=== PATIENT | female | born 1930 | race Hispanic/Latino ===

== ENCOUNTER 2020-03-27 14:37 | Inpatient (IN) | payer MEDICARE ==
[2020-03-27 16:19] LABS: Hematocrit 22.5 % (30.3-42.9); Hemoglobin 7.7 gm/dl (10.1-14.3); Mean Corpuscular HGB Conc 34 % (30-34); Mean Corpuscular Volume 110 fl (79-97); Platelet Count 200 K/mm3 (140-440); Red Blood Count 2.04 M/mm3 (3.65-5.03); Red Cell Distribution Width 17.7 % (13.2-15.2)
[2020-03-27 16:35] LABS: Albumin 3.6 g/dL (3.9-5); Calcium 7.5 mg/dL (8.4-10.2)
[2020-03-27] MEDS ORDERED: SODIUM CHLORIDE 0.45% 1000 ML 1,000 ML IV SCH (17:00)
[2020-03-27 17:04] LABS: Bilirubin,Urine NEG (Negative); Blood,Urine SM (Negative); Color,Urine Yellow (Yellow); Mucus,Urine FEW /HPF; Protein,Urine <15 mg/dL mg/dL (Negative); RBC,Urine < 1.0 /HPF (0.0-6.0); Urobilinogen,Urine < 2.0 mg/dL (<2.0)
[2020-03-27 17:26] LABS: Basophils % (Manual) 0 % (0.0-1.8); Eosinophils % (Manual) 0 % (0.0-4.3); RBC Morphology Normal; Total Cells Counted 100
--- NOTE | 2020-03-27 18:06 | Emergency Department Report ---
ED Fall HPI - General Chief Complaint: Fall Stated Complaint: FAILURE TO THRIVE Time Seen by Provider: 03/27/20 15:52 Source: EMS Mode of arrival: Ambulatory - History of Present Illness Initial Comments: 89-year-old female with history of anxiety, dementia, hypertension, CHF, d iabetes, chronic kidney disease, presents to ED via ambulance complaining of fall. Apparently patient calls EMS frequently due to fall. Patient apparently lives alone and house was in disarray. She also presents to the ED with compacted feces in underwear and on skin. Patient constantly asking for water and something to eat. She complains of headache. Medical History Previous Medical History?: Yes Hx Hypertension: Yes Hx Congestive Heart Failure: Yes Hx Diabetes: Yes Hx Renal Disease: Yes (CKD) Hx Seizures: Yes Hx COPD: Yes Additional medical history: high cholesterol - Surgical History Past Surgical History?: Yes Additional Surgical History: hysterectomy PT's previous records are under the name an [facility] record below. Last visit was 03/19/20 for headache Patient Name: MARIZOL HENSLEY Date of : 1930 Per medical record review patient's creatinine ranges from 1.5-1.8 since 2016. last visit creatinine 2.0 - Related Data Allergies Allergy/AdvReac Type Severity Reaction Status Date / Time codeine Allergy Unknown Verified 03/27/20 16:55 ED Review of Systems ROS: Stated complaint: FAILURE TO THRIVE Other details as noted in HPI Comment: All other systems reviewed and negative ED Past Medical Hx - Past Medical History Hx Hypertension: Yes Hx Diabetes: Yes - Social History Smoking Status: Former Smoker Substance Use Type: None ED Physical Exam - General Limitations: Physical Limitation - Other Other exam information: General: No acute distress Head: Atraumatic Eyes: normal appearance ENT: Moist mucous membranes Neck: Normal appearance, no midline tenderness Chest: Clear to auscultation bilaterally CV: Regular rate and rhythm Abdomen: Soft, normal bowel sounds, nontender, nondistended, no rebound or guarding Rectal: Guaiac positive brown stool without melena Back: Normal inspection Extremity: Normal inspection, full range of motion Neuro: Alert O x 2, no facial asymmetry, speech clear, no gross motor sensory deficit Psych: Appropriate behavior Skin: multiples superfical skin abrasions and bruises to extremities from recent falls ED Course Vital Signs 03/27/20 03/27/20 03/27/20 14:58 15:00 15:04 Temperature 98.3 F Pulse Rate 74 89 85 Respiratory 16 20 15 Rate Blood Pressure 112/39 Blood Pressure 112/39 [Right] O2 Sat by Pulse 98 Oximetry 03/27/20 03/27/20 15:32 18:57 Temperature Pulse Rate 78 Respiratory 15 16 Rate Blood Pressure Blood Pressure 142/61 [Right] O2 Sat by Pulse 100 Oximetry - Reevaluation(s) Reevaluation #1: 03/27/20 19:[address] scan results because they were not sent for read. Still awaiting ct c spine results ED Medical Decision Making - Lab Data Result diagrams: 03/27/20 16:05 03/27/20 16:05 Lab Results 03/27/20 03/27/20 03/27/20 Range/Units 16:05 16:05 16:05 WBC 7.1 (4.5-11.0) K/mm3 RBC 2.04 L (3.65-5.03) M/mm3 Hgb 7.7 L (10.1-14.3) gm/dl Hct 22.5 L (30.3-42.9) % MCV 110 H (79-97) fl MCH 38 H (28-32) pg MCHC 34 (30-34) % RDW 17.7 H (13.2-15.2) % Plt Count 200 (140-440) K/mm3 Add Manual Diff Complete Total Counted 100 Seg Neutrophils % Culinary Instructor Seg Neuts % (Manual) 91.0 H (40.0-70.0) % Band Neutrophils % 0 % Lymphocytes % (Manual) 6.0 L (13.4-35.0) % Reactive Lymphs % (Man) 0 % Monocytes % (Manual) 3.0 (0.0-7.3) % Eosinophils % (Manual) 0 (0.0-4.3) % Basophils % (Manual) 0 (0.0-1.8) % Metamyelocytes % 0 % Myelocytes % 0 % Promyelocytes % 0 % Blast Cells % 0 % Nucleated RBC % Not Reportable Seg Neutrophils # Man 6.5 (1.8-7.7) K/mm3 Band Neutrophils # 0.0 K/mm3 Lymphocytes # (Manual) 0.4 L (1.2-5.4) K/mm3 Abs React Lymphs (Man) 0.0 K/mm3 Monocytes # (Manual) 0.2 (0.0-0.8) K/mm3 Eosinophils # (Manual) 0.0 (0.0-0.4) K/mm3 Basophils # (Manual) 0.0 (0.0-0.1) K/mm3 Metamyelocytes # 0.0 K/mm3 Myelocytes # 0.0 K/mm3 Promyelocytes # 0.0 K/mm3 Blast Cells # 0.0 K/mm3 WBC Morphology Not Reportable Hypersegmented Neuts Not Reportable Hyposegmented Neuts Not Reportable Hypogranular Neuts Not Reportable Smudge Cells Not Reportable Toxic Granulation Not Reportable Toxic Vacuolation Not Reportable Dohle Bodies Not Reportable Pelger-Huet Anomaly Not Reportable Palak Rods Not Reportable Platelet Estimate Not Reportable Clumped Platelets Not Reportable Plt Clumps, EDTA Not Reportable Large Platelets Not Reportable Giant Platelets Not Reportable Platelet Satelliting Not Reportable Plt Morphology Comment Not Reportable RBC Morphology Normal Dimorphic RBCs Not Reportable Polychromasia Not Reportable Hypochromasia Not Reportable Poikilocytosis Not Reportable Anisocytosis Not Reportable Microcytosis Not Reportable Macrocytosis Not Reportable Spherocytes Not Reportable Pappenheimer Bodies Not Reportable Sickle Cells Not Reportable Target Cells Not Reportable Tear Drop Cells Not Reportable Ovalocytes Not Reportable Helmet Cells Not Reportable Christian-Caraway Bodies Not Reportable [place] Rings Not Reportable Bianka Cells Not Reportable Bite Cells Not Reportable Crenated Cell Not Reportable Elliptocytes Not Reportable Acanthocytes (Spur) Not Reportable Rouleaux Not Reportable Hemoglobin C Crystals Not Reportable Schistocytes Not Reportable Malaria parasites Not Reportable Shane Bodies Not Reportable Hem Pathologist Commnt No Sodium 142 (137-145) mmol/L Potassium 4.3 (3.6-5.0) mmol/L Chloride 106.8 (98-107) mmol/L Carbon Dioxide 17 L (22-30) mmol/L Anion Gap 23 mmol/L BUN 62 H (7-17) mg/dL Creatinine 2.7 H (0.7-1.2) mg/dL Estimated GFR 17 ml/min BUN/Creatinine Ratio 23 % Glucose 199 H (65-100) mg/dL Hemoglobin A1c 5.7 (4-6) % Calcium 7.5 L (8.4-10.2) mg/dL Magnesium (1.7-2.3) mg/dL Total Bilirubin 0.20 (0.1-1.2) mg/dL AST 15 (5-40) units/L ALT 14 (7-56) units/L Alkaline Phosphatase 56 (35-129) units/L Total Creatine Kinase 158 H (30-135) units/L Total Protein 6.2 L (6.3-8.2) g/dL Albumin 3.6 L (3.9-5) g/dL Albumin/Globulin Ratio 1.4 % Urine Color (Yellow) Urine Turbidity (Clear) Urine pH (5.0-7.0) Ur Specific Collins (1.003-1.030) Urine Protein (Negative) mg/dL Urine Glucose (UA) (Negative) mg/dL Urine Ketones (Negative) mg/dL Urine Blood (Negative) Urine Nitrite (Negative) Urine Bilirubin (Negative) Urine Urobilinogen (<2.0) mg/dL Ur Leukocyte Esterase (Negative) Urine WBC (Auto) (0.0-6.0) /HPF Urine RBC (Auto) (0.0-6.0) /HPF Urine Mucus /HPF 03/27/20 03/27/20 Range/Units 16:05 16:47 WBC (4.5-11.0) K/mm3 RBC (3.65-5.03) M/mm3 Hgb (10.1-14.3) gm/dl Hct (30.3-42.9) % MCV (79-97) fl MCH (28-32) pg MCHC (30-34) % RDW (13.2-15.2) % Plt Count (140-440) K/mm3 Add Manual Diff Total Counted Seg Neutrophils % Seg Neuts % (Manual) (40.0-70.0) % Band Neutrophils % % Lymphocytes % (Manual) (13.4-35.0) % Reactive Lymphs % (Man) % Monocytes % (Manual) (0.0-7.3) % Eosinophils % (Manual) (0.0-4.3) % Basophils % (Manual) (0.0-1.8) % Metamyelocytes % % Myelocytes % % Promyelocytes % % Blast Cells % % Nucleated RBC % Seg Neutrophils # Man (1.8-7.7) K/mm3 Band Neutrophils # K/mm3 Lymphocytes # (Manual) (1.2-5.4) K/mm3 Abs React Lymphs (Man) K/mm3 Monocytes # (Manual) (0.0-0.8) K/mm3 Eosinophils # (Manual) (0.0-0.4) K/mm3 Basophils # (Manual) (0.0-0.1) K/mm3 Metamyelocytes # K/mm3 Myelocytes # K/mm3 Promyelocytes # K/mm3 Blast Cells # K/mm3 WBC Morphology Hypersegmented Neuts Hyposegmented Neuts Hypogranular Neuts Smudge Cells Toxic Granulation Toxic Vacuolation Dohle Bodies Pelger-Huet Anomaly Palak Rods Platelet Estimate Clumped Platelets Plt Clumps, EDTA Large Platelets Giant Platelets Platelet Satelliting Plt Morphology Comment RBC Morphology Dimorphic RBCs Polychromasia Hypochromasia Poikilocytosis Anisocytosis Microcytosis Macrocytosis Spherocytes Pappenheimer Bodies Sickle Cells Target Cells Tear Drop Cells Ovalocytes Helmet Cells Christian-Caraway Bodies [place] Rings Bianka Cells Bite Cells Crenated Cell Elliptocytes Acanthocytes (Spur) Rouleaux Hemoglobin C Crystals Schistocytes Malaria parasites Shane Bodies Hem Pathologist Commnt Sodium (137-145) mmol/L Potassium (3.6-5.0) mmol/L Chloride (98-107) mmol/L Carbon Dioxide (22-30) mmol/L Anion Gap mmol/L BUN (7-17) mg/dL Creatinine (0.7-1.2) mg/dL Estimated GFR ml/min BUN/Creatinine Ratio % Glucose (65-100) mg/dL Hemoglobin A1c (4-6) % Calcium (8.4-10.2) mg/dL Magnesium 2.00 (1.7-2.3) mg/dL Total Bilirubin (0.1-1.2) mg/dL AST (5-40) units/L ALT (7-56) units/L Alkaline Phosphatase (35-129) units/L Total Creatine Kinase (30-135) units/L Total Protein (6.3-8.2) g/dL Albumin (3.9-5) g/dL Albumin/Globulin Ratio % Urine Color Yellow (Yellow) Urine Turbidity Slightly-cloudy (Clear) Urine pH 5.0 (5.0-7.0) Ur Specific Collins 1.015 (1.003-1.030) Urine Protein <15 mg/dl (Negative) mg/dL Urine Glucose (UA) Neg (Negative) mg/dL Urine Ketones Neg (Negative) mg/dL Urine Blood Sm (Negative) Urine Nitrite Neg (Negative) Urine Bilirubin Neg (Negative) Urine Urobilinogen < 2.0 (<2.0) mg/dL Ur Leukocyte Esterase Neg (Negative) Urine WBC (Auto) 1.0 (0.0-6.0) /HPF Urine RBC (Auto) < 1.0 (0.0-6.0) /HPF Urine Mucus Few /HPF - Radiology Data Radiology results: report reviewed ct head: naf - Medical Decision Making pts main complaint is wanting to eat and drink inc bun/cr ratio suggesting dehydration. ivf ordered + anemia noted hgb 8.8 on 03/19 now 7.7., guaic + brown stool without gross blood or melena Dr Gilbert requests pt to be admitted by next hospitalist DR Castillo Critical Care Time: No Critical care attestation.: If time is entered above; I have spent that time in minutes in the direct care of this critically ill patient, excluding procedure time. ED Disposition Clinical Impression: Anemia, Renal insufficiency, Dehydration, Frequent falls, Dementia, Guaiac + stool Disposition: OP ADMIT IP TO THIS HOSP Is pt being admited?: Yes Condition: Stable Time of Disposition: 19:45 (to be admitted by Dr Castillo)
--- NOTE | 2020-03-27 18:31 | Cat Scan Report ---
NONENHANCED CT SCAN OF THE HEAD: INDICATION / CLINICAL INFORMATION: 89 years Female; fell down; dementia TECHNIQUE: Routine CT head without contrast. All CT scans at this location are performed using CT dos e reduction for ALARA by means of automated exposure control. COMPARISON: None. FINDINGS: BRAIN / INTRACRANIAL CONTENTS: No intracranial sequela from the trauma.; No scalp hematoma; no air-fl uid level in the visualized portions of the paranasal sinuses. No acute hemorrhage, mass effect, midline shift, hydrocephalus, or acute, large territorial infarct. No chronic infarct or focal atrophy. Cerebellar hemispheres; chronic ischemic lesions chronic small vessel disease in the right heath radiata CRANIOCERVICAL JUNCTION: No significant abnormality. ORBITS: No significant abnormality of visualized orbits. SINUSES / MASTOIDS: No significant abnormality of the visualized paranasal sinuses or mastoid air liam ls. ADDITIONAL FINDINGS: None. IMPRESSION: No intracranial sequela from the trauma Signer Name: Kody Johnson MD Signed: 03/27/2020 6:26 PM Workstation Name: [id number]
--- NOTE | 2020-03-27 19:42 | Cat Scan Report ---
Exam: CT cervical spine History: fall, dementia; Technique: Contiguous thin cut axial images obtained through the cervical spine. Sagittal and heath l reconstructions performed by the technologist. All CT scans at this location are performed using CT dose reduction for ALARA by means of automated exposure control. Findings: No priors. There is no evidence of fracture or traumatic subluxation. Prevertebral fat stripe normal; no fractur e in the transverse images Midline bulging disc at C2-C3, C3-C4, C4-C5 and C5-C6 disc levels. Neuroforamina are normal. At C6-C7 level, loss of disc height; bony spur without lateralization No significant degenerative change seen in the uncinate or facet joints. No significant canal stenosi s or osseous foraminal narrowing. Surrounding soft tissues are grossly normal. Impression: No signs of acute bony trauma to the cervical spine. Signer Name: Kody Johnson MD Signed: 03/27/2020 7:37 PM Workstation Name: [id number]
[2020-03-27] MEDS ORDERED: DEXTROSE 50% IN WATER (25GM) 50 ML SYRINGE IV PRN (22:54)
[2020-03-27] MEDS ORDERED: SODIUM CHLORIDE 0.9% 1000 ML 1,000 ML IV SCH (23:00)
[2020-03-28] MEDS ORDERED: TEMAZEPAM 15 MG CAP PO ONE (00:15)
[2020-03-28 01:23] LABS: Hematocrit 27.2 % (30.3-42.9); Hemoglobin 8.3 gm/dl (10.1-14.3)
[2020-03-28 05:40] LABS: Hematocrit 25.5 % (30.3-42.9); Hemoglobin 8.1 gm/dl (10.1-14.3)
[2020-03-28] MEDS: INSULIN REGULAR, HUMAN 100 UNITS/1 ML SUB-Q SCH ×5 (08:48→22:28)
--- NOTE | 2020-03-28 09:39 | Consultation ---
History of Present Illness - Reason for Consult acute renal failure, chronic renal failure - History of Present Illness patient is a 89-year-old female with history of anxiety, dementia, hypertension, CHF, diabetes, chronic kidney disease, was admitted last night after a fall, CT head and neck were negative for acute injury, she was found to have abnormal kidney function, metabolic acidosis and anemia and renal consult was requested for the management of renal failure. Past History Past Medical History: No medical history (dementia, CHF) Medications and Allergies Allergies Allergy/AdvReac Type Severity Reaction Status Date / Time codeine Allergy Unknown Verified 03/27/20 16:55 Home Medications Medication Instructions Recorded Confirmed Last Taken Type Unobtainable 03/28/20 03/28/20 Unknown History Active Meds: Active Medications Acetaminophen (Tylenol) 650 mg PO Q4H PRN PRN Reason: Pain, Mild (1-3) Last Admin: 03/28/20 00:00 Dose: 650 mg Documented by: Dextrose (D50w (25gm) Syringe) 0 ml IV Q30MIN PRN; Protocol PRN Reason: Hypoglycemia Sodium Bicarbonate 75 meq/ (Sodium Chloride) 1,075 mls @ 75 mls/hr IV DIRECT LUIS ALBERTO Insulin Human Regular (Humulin R) 0 units SUB-Q AC LUIS ALBERTO; Protocol Insulin Human Regular (Humulin R) 0 units SUB-Q QHS LUIS ALBERTO; Protocol Review of Systems All systems: negative (weakness) Exam - Vital Signs Vital signs: Vital Signs Pulse Resp 74 16 03/27/20 14:58 03/27/20 14:58 - General Appearance General appearance: well-developed, cachectic EENT: ATNC, PERRL, mucous membranes dry Neck: Present: neck supple Respiratory: Clear to Ascultation Heart: regular, S1S2 Gastrointestinal: Present: normoactive bowel sounds. Absent: tenderness, distended Integumentary: no rash Neurologic: other (follows simple commands) Musculoskeletal: Present: other (no edema in BLE) Psychiatric: other (answers simple questions) Results - Lab Results 03/28/20 05:06 03/27/20 16:05 Most recent lab results Calcium 7.5 mg/dL (8.4-10.2) L 03/27/20 16:05 Magnesium 2.00 mg/dL (1.7-2.3) 03/27/20 16:05 Assessment and Plan renal failure, possible AL on CKD, baseline Cr is unknown Anemia Fall Metabolic acidosis will switch IVF to 1/2 NS with sodium bicarb 75 meq @ 75 cc/h urine lytes, eos and protein ordered renal US ordered CK ordered renally dose meds Strict I&O Daily weight Srini Ochoa MD [phone]
[2020-03-28] MEDS ORDERED: SODIUM CHLORIDE 0.45% 1000 ML 1,000 ML with SODIUM BICARBONATE 75 MEQ IV SCH (10:00)
--- NOTE | 2020-03-28 16:56 | Gastroenterology Consultation ---
History of Present Illness - Reason for Consult Consult date: 03/28/20 Anemia/Heme (+) Stool Requesting physician: AMI OQUENDO - History of Present Illness The patient is demented, and most of hx is per the chart (including old records under "[facility]") as well as nursing/MD notes. The patient was brought to the ER after falls at home (last occurence was 02/2020). She apparently lives at home alone but has a caregiver. On presentation to the ER, trauma series was negative for fracture, but the patient was disheveled, and very thin/in poor condition. Past History Past Medical History: heart failure, hypertension, other (Dementia) Past Surgical History: hysterectomy Social history: Lives alone. denies: smoking, alcohol abuse Family history: no significant family history Medications and Allergies Allergies Allergy/AdvReac Type Severity Reaction Status Date / Time codeine Allergy Unknown Verified 03/27/20 16:55 Home Medications Medication Instructions Recorded Confirmed Last Taken Type Unobtainable 03/28/20 03/28/20 Unknown History Active Meds: Active Medications Acetaminophen (Tylenol) 650 mg PO Q4H PRN PRN Reason: Pain, Mild (1-3) Last Admin: 03/28/20 00:00 Dose: 650 mg Documented by: Dextrose (D50w (25gm) Syringe) 0 ml IV Q30MIN PRN; Protocol PRN Reason: Hypoglycemia Sodium Bicarbonate 75 meq/ (Sodium Chloride) 1,075 mls @ 75 mls/hr IV DIRECT LUIS ALBERTO Insulin Human Regular (Humulin R) 0 units SUB-Q AC LUIS ALBERTO; Protocol Last Admin: 03/28/20 12:00 Dose: 1 units Documented by: Insulin Human Regular (Humulin R) 0 units SUB-Q QHS LUIS ALBERTO; Protocol Multivitamins/Minerals (Theragran-M Tab) 1 each PO QDAY LUIS ALBERTO I HAVE REVIEWED/RECONCILED MEDICATIONS Review of Systems - Review of Systems ROS unobtainable: due to mental status Exam - Constitutional Vital Signs: Temp Pulse Resp BP Pulse Ox 97.0 F L 91 H 22 166/110 96 03/28/20 11:45 03/28/20 11:45 03/28/20 11:45 03/28/20 11:45 03/28/20 11:45 General appearance: cachectic, disheveled - EENT Eyes: PERRL, EOM intact ENT: hearing intact, no thrush - Neck Neck: supple, normal ROM - Respiratory Respiratory effort: normal Respiratory: bilateral: CTA - Cardiovascular Rhythm: regular Heart Sounds: Present: S1 & S2 Extremities: no ischemia, No edema - Gastrointestinal General gastrointestinal: Present: soft, non-tender, non-distended - Integumentary Integumentary: Present: warm (Numerous scratches present), dry - Neurologic Neurological: disoriented - Labs CBC & Chem 7: 03/28/20 05:06 03/27/20 16:05 Lab Results: Laboratory Results - last 24 hr 03/27/20 03/27/20 03/27/20 16:05 16:05 16:47 Hgb Hct Add Manual Diff Complete Total Counted 100 Seg Neuts % (Manual) 91.0 H Band Neutrophils % 0 Lymphocytes % (Manual) 6.0 L Reactive Lymphs % (Man) 0 Monocytes % (Manual) 3.0 Eosinophils % (Manual) 0 Basophils % (Manual) 0 Metamyelocytes % 0 Myelocytes % 0 Promyelocytes % 0 Blast Cells % 0 Nucleated RBC % Not Reportable Seg Neutrophils # Man 6.5 Band Neutrophils # 0.0 Lymphocytes # (Manual) 0.4 L Abs React Lymphs (Man) 0.0 Monocytes # (Manual) 0.2 Eosinophils # (Manual) 0.0 Basophils # (Manual) 0.0 Metamyelocytes # 0.0 Myelocytes # 0.0 Promyelocytes # 0.0 Blast Cells # 0.0 WBC Morphology Not Reportable Hypersegmented Neuts Not Reportable Hyposegmented Neuts Not Reportable Hypogranular Neuts Not Reportable Smudge Cells Not Reportable Toxic Granulation Not Reportable Toxic Vacuolation Not Reportable Dohle Bodies Not Reportable Pelger-Huet Anomaly Not Reportable [place] Rods Not Reportable Platelet Estimate Not Reportable Clumped Platelets Not Reportable Plt Clumps, EDTA Not Reportable Large Platelets Not Reportable Giant Platelets Not Reportable Platelet Satelliting Not Reportable Plt Morphology Comment Not Reportable RBC Morphology Normal Dimorphic RBCs Not Reportable Polychromasia Not Reportable Hypochromasia Not Reportable Poikilocytosis Not Reportable Anisocytosis Not Reportable Microcytosis Not Reportable Macrocytosis Not Reportable Spherocytes Not Reportable Pappenheimer Bodies Not Reportable Sickle Cells Not Reportable Target Cells Not Reportable Tear Drop Cells Not Reportable Ovalocytes Not Reportable Helmet Cells Not Reportable [place] Bodies Not Reportable [place] Rings Not Reportable [place] Cells Not Reportable Bite Cells Not Reportable Crenated Cell Not Reportable Elliptocytes Not Reportable Acanthocytes (Spur) Not Reportable Rouleaux Not Reportable Hemoglobin C Crystals Not Reportable Schistocytes Not Reportable Malaria parasites Not Reportable Shane Bodies Not Reportable Hem Pathologist Commnt No POC Glucose Total Creatine Kinase 158 H Urine Color Yellow Urine Turbidity Slightly-cloudy Urine pH 5.0 Ur Specific [place] 1.015 Urine Protein <15 mg/dl Urine Glucose (UA) Neg Urine Ketones Neg Urine Blood Sm Urine Nitrite Neg Urine Bilirubin Neg Urine Urobilinogen < 2.0 Ur Leukocyte Esterase Neg Urine WBC (Auto) 1.0 Urine RBC (Auto) < 1.0 Urine Mucus Few 03/27/20 03/28/20 03/28/20 23:22 00:43 05:06 Hgb 8.3 L 8.1 L Hct 27.2 L 25.5 L Add Manual Diff Total Counted Seg Neuts % (Manual) Band Neutrophils % Lymphocytes % (Manual) Reactive Lymphs % (Man) Monocytes % (Manual) Eosinophils % (Manual) Basophils % (Manual) Metamyelocytes % Myelocytes % Promyelocytes % Blast Cells % Nucleated RBC % Seg Neutrophils # Man Band Neutrophils # Lymphocytes # (Manual) Abs React Lymphs (Man) Monocytes # (Manual) Eosinophils # (Manual) Basophils # (Manual) Metamyelocytes # Myelocytes # Promyelocytes # Blast Cells # WBC Morphology Hypersegmented Neuts Hyposegmented Neuts Hypogranular Neuts Smudge Cells Toxic Granulation Toxic Vacuolation Dohle Bodies Pelger-Huet Anomaly [place] Rods Platelet Estimate Clumped Platelets Plt Clumps, EDTA Large Platelets Giant Platelets Platelet Satelliting Plt Morphology Comment RBC Morphology Dimorphic RBCs Polychromasia Hypochromasia Poikilocytosis Anisocytosis Microcytosis Macrocytosis Spherocytes Pappenheimer Bodies Sickle Cells Target Cells Tear Drop Cells Ovalocytes Helmet Cells [place] Bodies [place] Rings Bianka Cells Bite Cells Crenated Cell Elliptocytes Acanthocytes (Spur) Rouleaux Hemoglobin C Crystals Schistocytes Malaria parasites Shane Bodies Hem Pathologist Commnt POC Glucose 209 H Total Creatine Kinase Urine Color Urine Turbidity Urine pH Ur Specific [place] Urine Protein Urine Glucose (UA) Urine Ketones Urine Blood Urine Nitrite Urine Bilirubin Urine Urobilinogen Ur Leukocyte Esterase Urine WBC (Auto) Urine RBC (Auto) Urine Mucus 03/28/20 03/28/20 03/28/20 07:47 11:18 12:01 Hgb Hct Add Manual Diff Total Counted Seg Neuts % (Manual) Band Neutrophils % Lymphocytes % (Manual) Reactive Lymphs % (Man) Monocytes % (Manual) Eosinophils % (Manual) Basophils % (Manual) Metamyelocytes % Myelocytes % Promyelocytes % Blast Cells % Nucleated RBC % Seg Neutrophils # Man Band Neutrophils # Lymphocytes # (Manual) Abs React Lymphs (Man) Monocytes # (Manual) Eosinophils # (Manual) Basophils # (Manual) Metamyelocytes # Myelocytes # Promyelocytes # Blast Cells # WBC Morphology Hypersegmented Neuts Hyposegmented Neuts Hypogranular Neuts Smudge Cells Toxic Granulation Toxic Vacuolation Dohle Bodies Pelger-Huet Anomaly [place] Rod[place] Platelet Estimate Clumped Platelets Plt Clumps, EDTA Large Platelets Giant Platelets Platelet Satelliting Plt Morphology Comment RBC Morphology Dimorphic RBCs Polychromasia Hypochromasia Poikilocytosis Anisocytosis Microcytosis Macrocytosis Spherocytes Pappenheimer Bodies Sickle Cells Target Cells Tear Drop Cells Ovalocytes Helmet Cells [place] Bodies [place] Rings Bianka Cells Bite Cells Crenated Cell Elliptocytes Acanthocytes (Spur) Rouleaux Hemoglobin C Crystals Schistocytes Malaria parasites Shane Bodies Hem Pathologist Commnt POC Glucose 97 183 H Total Creatine Kinase 136 H Urine Color Urine Turbidity Urine pH Ur Specific [place] Urine Protein Urine Glucose (UA) Urine Ketones Urine Blood Urine Nitrite Urine Bilirubin Urine Urobilinogen Ur Leukocyte Esterase Urine WBC (Auto) Urine RBC (Auto) Urine Mucus 03/28/20 16:19 Hgb Hct Add Manual Diff Total Counted Seg Neuts % (Manual) Band Neutrophils % Lymphocytes % (Manual) Reactive Lymphs % (Man) Monocytes % (Manual) Eosinophils % (Manual) Basophils % (Manual) Metamyelocytes % Myelocytes % Promyelocytes % Blast Cells % Nucleated RBC % Seg Neutrophils # Man Band Neutrophils # Lymphocytes # (Manual) Abs React Lymphs (Man) Monocytes # (Manual) Eosinophils # (Manual) Basophils # (Manual) Metamyelocytes # Myelocytes # Promyelocytes # Blast Cells # WBC Morphology Hypersegmented Neuts Hyposegmented Neuts Hypogranular Neuts Smudge Cells Toxic Granulation Toxic Vacuolation Dohle Bodies Pelger-Huet Anomaly [place] Rods Platelet Estimate Clumped Platelets Plt Clumps, EDTA Large Platelets Giant Platelets Platelet Satelliting Plt Morphology Comment RBC Morphology Dimorphic RBCs Polychromasia Hypochromasia Poikilocytosis Anisocytosis Microcytosis Macrocytosis Spherocytes Pappenheimer Bodies Sickle Cells Target Cells Tear Drop Cells Ovalocytes Helmet Cells [place] Bodies [place] Rings [place] Cells Bite Cells Crenated Cell Elliptocytes Acanthocytes (Spur) Rouleaux Hemoglobin C Crystals Schistocytes Malaria parasites Shane Bodies Hem Pathologist Commnt POC Glucose 89 Total Creatine Kinase Urine Color Urine Turbidity Urine pH Ur Specific [place] Urine Protein Urine Glucose (UA) Urine Ketones Urine Blood Urine Nitrite Urine Bilirubin Urine Urobilinogen Ur Leukocyte Esterase Urine WBC (Auto) Urine RBC (Auto) Urine Mucus Assessment and Plan - Patient Problems (1) Chronic anemia Current Visit: Yes Status: Acute Plan to address problem: - Macrocytic, and B12 borderline in 2015. Is also heme (+) but no melena or hematochezia. - Will recheck B12, and start MVI daily. - Protonix daily therapy, and will avoid NSAIDs (DVT PPY is OK). - Nutritional support ordered/continue regular diet. - Endoscopy currently not planned.
--- NOTE | 2020-03-28 18:33 | Progress Note ---
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 --Advanced age/dementia; Supportive care --DVT prophylaxis; SCDs --Full CODE STATUS Monitor closely and adjust management as needed History Interval history: Have seen and examined the patient at the bedside this afternoon Patient's chart and medications reviewed Patient is confused agitated getting off the bed Restraint for safety Vital signs noted Hospitalist Physical - Constitutional Vitals: Temp Pulse Resp BP Pulse Ox 97.0 F L 105 H 22 217/79 99 03/28/20 16:04 03/28/20 16:04 03/28/20 16:04 03/28/20 16:04 03/28/20 16:04 General appearance: Present: mild distress, other (Confused, agitated, restraint for safety) - EENT Eyes: Present: PERRL, EOM intact - Neck Neck: Present: supple, normal ROM - Respiratory Respiratory effort: normal Respiratory: bilateral: diminished, negative: rales, rhonchi, wheezing - Cardiovascular Rhythm: regular Heart Sounds: Present: S1 & S2 - Extremities Extremities: no ischemia, No edema - Abdominal General gastrointestinal: soft, non-tender, non-distended, normal bowel sounds Results - Labs CBC & Chem 7: 03/28/20 05:06 03/27/20 16:05 Labs: Laboratory Last Values WBC 7.1 K/mm3 (4.5-11.0) 03/27/20 16:05 RBC 2.04 M/mm3 (3.65-5.03) L 03/27/20 16:05 Hgb 8.1 gm/dl (10.1-14.3) L 03/28/20 05:06 Hct 25.5 % (30.3-42.9) L 03/28/20 05:06 MCV 110 fl (79-97) H 03/27/20 16:05 MCH 38 pg (28-32) H 03/27/20 16:05 MCHC 34 % (30-34) 03/27/20 16:05 RDW 17.7 % (13.2-15.2) H 03/27/20 16:05 Plt Count 200 K/mm3 (140-440) 03/27/20 16:05 Add Manual Diff Complete 03/27/20 16:05 Total Counted 100 03/27/20 16:05 Seg Neutrophils % Digester Operator Helper 03/27/20 16:05 Seg Neuts % (Manual) 91.0 % (40.0-70.0) H 03/27/20 16:05 Band Neutrophils % 0 % 03/27/20 16:05 Lymphocytes % (Manual) 6.0 % (13.4-35.0) L 03/27/20 16:05 Reactive Lymphs % (Man) 0 % 03/27/20 16:05 Monocytes % (Manual) 3.0 % (0.0-7.3) 03/27/20 16:05 Eosinophils % (Manual) 0 % (0.0-4.3) 03/27/20 16:05 Basophils % (Manual) 0 % (0.0-1.8) 03/27/20 16:05 Metamyelocytes % 0 % 03/27/20 16:05 Myelocytes % 0 % 03/27/20 16:05 Promyelocytes % 0 % 03/27/20 16:05 Blast Cells % 0 % 03/27/20 16:05 Nucleated RBC % Not Reportable 03/27/20 16:05 Seg Neutrophils # Man 6.5 K/mm3 (1.8-7.7) 03/27/20 16:05 Band Neutrophils # 0.0 K/mm3 03/27/20 16:05 Lymphocytes # (Manual) 0.4 K/mm3 (1.2-5.4) L 03/27/20 16:05 Abs React Lymphs (Man) 0.0 K/mm3 03/27/20 16:05 Monocytes # (Manual) 0.2 K/mm3 (0.0-0.8) 03/27/20 16:05 Eosinophils # (Manual) 0.0 K/mm3 (0.0-0.4) 03/27/20 16:05 Basophils # (Manual) 0.0 K/mm3 (0.0-0.1) 03/27/20 16:05 Metamyelocytes # 0.0 K/mm3 03/27/20 16:05 Myelocytes # 0.0 K/mm3 03/27/20 16:05 Promyelocytes # 0.0 K/mm3 03/27/20 16:05 Blast Cells # 0.0 K/mm3 03/27/20 16:05 WBC Morphology Not Reportable 03/27/20 16:05 Hypersegmented Neuts Not Reportable 03/27/20 16:05 Hyposegmented Neuts Not Reportable 03/27/20 16:05 Hypogranular Neuts Not Reportable 03/27/20 16:05 Smudge Cells Not Reportable 03/27/20 16:05 Toxic Granulation Not Reportable 03/27/20 16:05 Toxic Vacuolation Not Reportable 03/27/20 16:05 Dohle Bodies Not Reportable 03/27/20 16:05 Pelger-Huet Anomaly Not Reportable 03/27/20 16:05 Palak Rods Not Reportable 03/27/20 16:05 Platelet Estimate Not Reportable 03/27/20 16:05 Clumped Platelets Not Reportable 03/27/20 16:05 Plt Clumps, EDTA Not Reportable 03/27/20 16:05 Large Platelets Not Reportable 03/27/20 16:05 Giant Platelets Not Reportable 03/27/20 16:05 Platelet Satelliting Not Reportable 03/27/20 16:05 Plt Morphology Comment Not Reportable 03/27/20 16:05 RBC Morphology Normal 03/27/20 16:05 Dimorphic RBCs Not Reportable 03/27/20 16:05 Polychromasia Not Reportable 03/27/20 16:05 Hypochromasia Not Reportable 03/27/20 16:05 Poikilocytosis Not Reportable 03/27/20 16:05 Anisocytosis Not Reportable 03/27/20 16:05 Microcytosis Not Reportable 03/27/20 16:05 Macrocytosis Not Reportable 03/27/20 16:05 Spherocytes Not Reportable 03/27/20 16:05 Pappenheimer Bodies Not Reportable 03/27/20 16:05 Sickle Cells Not Reportable 03/27/20 16:05 Target Cells Not Reportable 03/27/20 16:05 Tear Drop Cells Not Reportable 03/27/20 16:05 Ovalocytes Not Reportable 03/27/20 16:05 Helmet Cells Not Reportable 03/27/20 16:05 [place] Bodies Not Reportable 03/27/20 16:05 [place] Rings Not Reportable 03/27/20 16:05 Bianka Cells Not Reportable 03/27/20 16:05 Bite Cells Not Reportable 03/27/20 16:05 Crenated Cell Not Reportable 03/27/20 16:05 Elliptocytes Not Reportable 03/27/20 16:05 Acanthocytes (Spur) Not Reportable 03/27/20 16:05 Rouleaux Not Reportable 03/27/20 16:05 Hemoglobin C Crystals Not Reportable 03/27/20 16:05 Schistocytes Not Reportable 03/27/20 16:05 Malaria parasites Not Reportable 03/27/20 16:05 Shane Bodies Not Reportable 03/27/20 16:05 Hem Pathologist Commnt No 03/27/20 16:05 Sodium 142 mmol/L (137-145) 03/27/20 16:05 Potassium 4.3 mmol/L (3.6-5.0) 03/27/20 16:05 Chloride 106.8 mmol/L (98-107) 03/27/20 16:05 Carbon Dioxide 17 mmol/L (22-30) L 03/27/20 16:05 Anion Gap 23 mmol/L 03/27/20 16:05 BUN 62 mg/dL (7-17) H 03/27/20 16:05 Creatinine 2.7 mg/dL (0.7-1.2) H 03/27/20 16:05 Estimated GFR 17 ml/min 03/27/20 16:05 BUN/Creatinine Ratio 23 % 03/27/20 16:05 Glucose 199 mg/dL (65-100) H 03/27/20 16:05 POC Glucose 89 (70-105) 03/28/20 16:19 Hemoglobin A1c 5.7 % (4-6) 03/27/20 16:05 Calcium 7.5 mg/dL (8.4-10.2) L 03/27/20 16:05 Magnesium 2.00 mg/dL (1.7-2.3) 03/27/20 16:05 Total Bilirubin 0.20 mg/dL (0.1-1.2) 03/27/20 16:05 AST 15 units/L (5-40) 03/27/20 16:05 ALT 14 units/L (7-56) 03/27/20 16:05 Alkaline Phosphatase 56 units/L (35-129) 03/27/20 16:05 Total Creatine Kinase 136 units/L (30-135) H 03/28/20 11:18 Total Protein 6.2 g/dL (6.3-8.2) L 03/27/20 16:05 Albumin 3.6 g/dL (3.9-5) L 03/27/20 16:05 Albumin/Globulin Ratio 1.4 % 03/27/20 16:05 Urine Color Yellow (Yellow) 03/27/20 16:47 Urine Turbidity Slightly-cloudy (Clear) 03/27/20 16:47 Urine pH 5.0 (5.0-7.0) 03/27/20 16:47 Ur Specific [place] 1.015 (1.003-1.030) 03/27/20 16:47 Urine Protein <15 mg/dl mg/dL (Negative) 03/27/20 16:47 Urine Glucose (UA) Neg mg/dL (Negative) 03/27/20 16:47 Urine Ketones Neg mg/dL (Negative) 03/27/20 16:47 Urine Blood Sm (Negative) 03/27/20 16:47 Urine Nitrite Neg (Negative) 03/27/20 16:47 Urine Bilirubin Neg (Negative) 03/27/20 16:47 Urine Urobilinogen < 2.0 mg/dL (<2.0) 03/27/20 16:47 Ur Leukocyte Esterase Neg (Negative) 03/27/20 16:47 Urine WBC (Auto) 1.0 /HPF (0.0-6.0) 03/27/20 16:47 Urine RBC (Auto) < 1.0 /HPF (0.0-6.0) 03/27/20 16:47 Urine Mucus Few /HPF 03/27/20 16:47 Microbiology: Microbiology 03/27/20 Unknown Stool Stool Occult Blood (ALFRED) - Final Steward/IV: Voiding Method Incontinent IV Catheter Type [Right Upper Peripheral IV arm] IV Catheter Type [Left Peripheral IV Antecubital] Active Medications - Current Medications Current Medications: Generic Name Dose Route Start Last Admin Trade Name Freq PRN Reason Stop Dose Admin Acetaminophen 650 mg 03/27/20 23:54 03/28/20 00:00 Tylenol PO 650 mg Q4H PRN Administration Pain, Mild (1-3) Dextrose 0 ml 03/27/20 22:54 D50w (25gm) Syringe IV Q30MIN PRN Hypoglycemia Protocol Sodium Bicarbonate 75 meq/ 1,075 mls @ 75 mls/hr 03/28/20 10:00 Sodium Chloride IV DIRECT LUIS ALBERTO Insulin Human Regular 0 units 03/28/20 07:30 03/28/20 12:00 Humulin R SUB-Q 1 units AC LUIS ALBERTO Administration Protocol Insulin Human Regular 0 units 03/28/20 22:00 Humulin R SUB-Q QHS LUIS ALBERTO Protocol Multivitamins/Minerals 1 each 03/29/20 10:00 Theragran-M Tab PO QDAY LUIS ALBERTO Pantoprazole Sodium 40 mg 03/29/20 10:00 Protonix PO QDAY LUIS ALBERTO Nutrition/Malnutrition Assess - Dietary Evaluation Nutrition/Malnutrition Findings: Nutrition Notes Start: 03/28/20 13:27 Freq: Status: Active Protocol: Document 03/28/20 13:27 LM (Rec: 03/28/20 13:40 LM [id number]) Nutrition Notes Need for Assessment generated from: MD Order,Low BMI Initial or Follow up Assessment Current Diagnosis CKD(stage I-IV),Diabetes, Hypertension Other Pertinent Diagnosis FTT, dementia, frequent falls Current Diet consistent CHO/low sodium Labs/Tests POC glu 183 Pertinent Medications Reviewed Height 5 ft 4 in Weight 36.5 kg [place] Body Weight (kg) 54.54 BMI 13.8 Subjective/Other Information MD consult for malnutrition and ONS. Screen for low BMI. Pt not appropriate for assessment at time of visit. 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 Will order Nepro for pt for extra kcal and CHO contol. 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 No Is Patient Ambulatory and/or Out of Bed Yes REE-([place]-St. Jeor-ambulatory/OOB) [ 1007.500 [id number]] Kcal/Kg value to use for calculation 40 Approximate Energy Requirements Using 1460 kcal/Kg Calculation Used for Recommendations Kcal/kg Additional Notes Protein: 44-56g (1.2-1.5g/kg) Fluid: 1ml/kcal Nutrition Intervention Change Diet Order: continue Add Supplement/Snack (indicate name/kcal Nepro BID /protein ) Provides kCal: 850 Provides Protein (gm) 38 Goal #1 meet at least 80% of energy and protein needs Anticipated Discharge Needs: cardiac/consistent CHO Follow-Up By: 03/30/20 Additional Comments F/U for PO/ONS tolerance
--- NOTE | 2020-03-28 20:14 | Ultrasound Report ---
ULTRASOUND RENAL INDICATION / CLINICAL INFORMATION: Renal failure. COMPARISON: None available. FINDINGS: RIGHT KIDNEY: - Length = 8.1 cm. [Normal > 9.0 cm] - Parenchymal Thickness = 1.3 cm. [Normal > 1.5 cm] - Echogenicity: Echogenic -- hyperechoic to liver/spleen. - Hydronephrosis: None. - Cyst or mass: No significant abnormality. LEFT KIDNEY: - Length = 9.4 cm. [Normal > 9.0 cm] - Parenchymal Thickness = 1.2 cm. [Normal > 1.5 cm] - Echogenicity: Echogenic -- hyperechoic to liver/spleen. - Hydronephrosis: None. - Cyst or mass: 2.3 cm simple cyst in the upper pole. URINARY BLADDER: No significant abnormality. ADDITIONAL FINDINGS: None. IMPRESSION: Findings characteristic of medical renal disease. No evidence of hydronephrosis. Renal Parenchymal Thickness Parenchyma = Cortex + Medullary Pyramid - Normal >= 1.5 cm - Mild thinning = 1.0-1.49 cm - Moderate thinning = 0.5-0.99 cm - Severe thinning < 0.5 cm Signer Name: Uziel Ham MD Signed: 03/28/2020 8:09 PM Workstation Name: [id number]
[2020-03-28] MEDS: ACETAMINOPHEN 325 MG TAB PO PRN ×2 (21:37)
[2020-03-28] MEDS: SODIUM BICARBONATE 75 MEQ in SODIUM CHLORIDE 0.45% 1000 ML 1,000 ML IV SCH (22:02)
[2020-03-29 05:25] LABS: Basophils % (Auto) 0.6 % (0.0-1.8); Eosinophils % (Auto) 0.1 % (0.0-4.3); Hematocrit 26.6 % (30.3-42.9); Hemoglobin 8.7 gm/dl (10.1-14.3); Lymphocytes # (Auto) 0.2 K/mm3 (1.2-5.4); Lymphocytes % (Auto) 3.1 % (13.4-35.0); Mean Corpuscular HGB Conc 33 % (30-34); Mean Corpuscular Volume 107 fl (79-97); Monocytes # (Auto) 0.6 K/mm3 (0.0-0.8); Monocytes % (Auto) 9.5 % (0.0-7.3); Platelet Count 263 K/mm3 (140-440); Red Blood Count 2.49 M/mm3 (3.65-5.03); Red Cell Distribution Width 17.3 % (13.2-15.2)
[2020-03-29 05:43] LABS: Calcium 8.2 mg/dL (8.4-10.2)
[2020-03-29] MEDS: INSULIN REGULAR, HUMAN 100 UNITS/1 ML SUB-Q SCH ×4 (07:30→22:36)
[2020-03-29] MEDS ORDERED: HALOPERIDOL LACTATE 5 MG/1 ML INJ IM PRN (08:45)
--- NOTE | 2020-03-29 08:46 | Progress Note ---
Assessment and Plan Assessment and plan: --Anemia; H&H stable Unable to assess acute or chronic as we do not have the baseline H&H GI bleeding/heme positive stool, closely monitor H&H GI evaluation noted and appreciated --Heme positive stool; No evidence of GI bleeding GI signed off, supportive care --Acute versus acute on chronic kidney disease Patient's baseline creatinine levels unknown Probably secondary to vasomotor nephropathy Creatinine improving today to 1.8 Nephrology following --Severe malnutrition; BMI 14.2 Nutrition supplements, nutrition consult Supportive care --History of fall; fall precautions Physical therapy 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, 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 --Advanced age/dementia; Supportive care --DVT prophylaxis; SCDs --Full CODE STATUS --DC planning; possible SNF placement Monitor closely and adjust management as needed Plan of care reviewed with the patient and her nurse History Interval history: Seen and examined at the bedside this morning Patient's chart and medications reviewed Patient is alert and awake confused agitated Vital signs noted No evidence of bleeding Hemodynamically stable Hospitalist Physical - Constitutional Vitals: Temp Pulse Resp BP Pulse Ox 98.0 F 96 H 20 175/71 99 03/29/20 03:55 03/28/20 22:00 03/29/20 03:55 03/29/20 03:55 03/28/20 22:00 General appearance: Present: mild distress, other (Confused, agitated, restraint for safety) - EENT Eyes: Present: PERRL, EOM intact - Neck Neck: Present: supple, normal ROM - Respiratory Respiratory effort: normal Respiratory: bilateral: diminished, negative: rales, rhonchi, wheezing - Cardiovascular Rhythm: regular Heart Sounds: Present: S1 & S2 - Extremities Extremities: no ischemia, No edema - Abdominal General gastrointestinal: soft, non-tender, non-distended, normal bowel sounds - Integumentary Integumentary: Present: clear, warm - Psychiatric Psychiatric: agitated, other (Confused) - Neurologic Neurologic: moves all extremities Results - Labs CBC & Chem 7: 03/30/20 05:06 03/30/20 05:06 Labs: Laboratory Last Values WBC 6.8 K/mm3 (4.5-11.0) 03/29/20 05:02 RBC 2.49 M/mm3 (3.65-5.03) L 03/29/20 05:02 Hgb 8.7 gm/dl (10.1-14.3) L 03/29/20 05:02 Hct 26.6 % (30.3-42.9) L 03/29/20 05:02 MCV 107 fl (79-97) H 03/29/20 05:02 MCH 35 pg (28-32) H 03/29/20 05:02 MCHC 33 % (30-34) 03/29/20 05:02 RDW 17.3 % (13.2-15.2) H 03/29/20 05:02 Plt Count 263 K/mm3 (140-440) 03/29/20 05:02 Lymph % (Auto) 3.1 % (13.4-35.0) L 03/29/20 05:02 [place] % (Auto) 9.5 % (0.0-7.3) H 03/29/20 05:02 Eos % (Auto) 0.1 % (0.0-4.3) 03/29/20 05:02 Baso % (Auto) 0.6 % (0.0-1.8) 03/29/20 05:02 Lymph # 0.2 K/mm3 (1.2-5.4) L 03/29/20 05:02 [place] # 0.6 K/mm3 (0.0-0.8) 03/29/20 05:02 Eos # 0.0 K/mm3 (0.0-0.4) 03/29/20 05:02 Baso # 0.0 K/mm3 (0.0-0.1) 03/29/20 05:02 Add Manual Diff Complete 03/27/20 16:05 Total Counted 100 03/27/20 16:05 Seg Neutrophils % 86.7 % (40.0-70.0) H 03/29/20 05:02 Seg Neuts % (Manual) 91.0 % (40.0-70.0) H 03/27/20 16:05 Band Neutrophils % 0 % 03/27/20 16:05 Lymphocytes % (Manual) 6.0 % (13.4-35.0) L 03/27/20 16:05 Reactive Lymphs % (Man) 0 % 03/27/20 16:05 Monocytes % (Manual) 3.0 % (0.0-7.3) 03/27/20 16:05 Eosinophils % (Manual) 0 % (0.0-4.3) 03/27/20 16:05 Basophils % (Manual) 0 % (0.0-1.8) 03/27/20 16:05 Metamyelocytes % 0 % 03/27/20 16:05 Myelocytes % 0 % 03/27/20 16:05 Promyelocytes % 0 % 03/27/20 16:05 Blast Cells % 0 % 03/27/20 16:05 Nucleated RBC % Not Reportable 03/27/20 16:05 Seg Neutrophils # 5.9 K/mm3 (1.8-7.7) 03/29/20 05:02 Seg Neutrophils # Man 6.5 K/mm3 (1.8-7.7) 03/27/20 16:05 Band Neutrophils # 0.0 K/mm3 03/27/20 16:05 Lymphocytes # (Manual) 0.4 K/mm3 (1.2-5.4) L 03/27/20 16:05 Abs React Lymphs (Man) 0.0 K/mm3 03/27/20 16:05 Monocytes # (Manual) 0.2 K/mm3 (0.0-0.8) 03/27/20 16:05 Eosinophils # (Manual) 0.0 K/mm3 (0.0-0.4) 03/27/20 16:05 Basophils # (Manual) 0.0 K/mm3 (0.0-0.1) 03/27/20 16:05 Metamyelocytes # 0.0 K/mm3 03/27/20 16:05 Myelocytes # 0.0 K/mm3 03/27/20 16:05 Promyelocytes # 0.0 K/mm3 03/27/20 16:05 Blast Cells # 0.0 K/mm3 03/27/20 16:05 WBC Morphology Not Reportable 03/27/20 16:05 Hypersegmented Neuts Not Reportable 03/27/20 16:05 Hyposegmented Neuts Not Reportable 03/27/20 16:05 Hypogranular Neuts Not Reportable 03/27/20 16:05 Smudge Cells Not Reportable 03/27/20 16:05 Toxic Granulation Not Reportable 03/27/20 16:05 Toxic Vacuolation Not Reportable 03/27/20 16:05 Dohle Bodies Not Reportable 03/27/20 16:05 Pelger-Huet Anomaly Not Reportable 03/27/20 16:05 Palak Rods Not Reportable 03/27/20 16:05 Platelet Estimate Not Reportable 03/27/20 16:05 Clumped Platelets Not Reportable 03/27/20 16:05 Plt Clumps, EDTA Not Reportable 03/27/20 16:05 Large Platelets Not Reportable 03/27/20 16:05 Giant Platelets Not Reportable 03/27/20 16:05 Platelet Satelliting Not Reportable 03/27/20 16:05 Plt Morphology Comment Not Reportable 03/27/20 16:05 RBC Morphology Normal 03/27/20 16:05 Dimorphic RBCs Not Reportable 03/27/20 16:05 Polychromasia Not Reportable 03/27/20 16:05 Hypochromasia Not Reportable 03/27/20 16:05 Poikilocytosis Not Reportable 03/27/20 16:05 Anisocytosis Not Reportable 03/27/20 16:05 Microcytosis Not Reportable 03/27/20 16:05 Macrocytosis Not Reportable 03/27/20 16:05 Spherocytes Not Reportable 03/27/20 16:05 Pappenheimer Bodies Not Reportable 03/27/20 16:05 Sickle Cells Not Reportable 03/27/20 16:05 Target Cells Not Reportable 03/27/20 16:05 Tear Drop Cells Not Reportable 03/27/20 16:05 Ovalocytes Not Reportable 03/27/20 16:05 Helmet Cells Not Reportable 03/27/20 16:05 [place] Bodies Not Reportable 03/27/20 16:05 [place] Rings Not Reportable 03/27/20 16:05 [place] Cells Not Reportable 03/27/20 16:05 Bite Cells Not Reportable 03/27/20 16:05 Crenated Cell Not Reportable 03/27/20 16:05 Elliptocytes Not Reportable 03/27/20 16:05 Acanthocytes (Spur) Not Reportable 03/27/20 16:05 Rouleaux Not Reportable 03/27/20 16:05 Hemoglobin C Crystals Not Reportable 03/27/20 16:05 Schistocytes Not Reportable 03/27/20 16:05 Malaria parasites Not Reportable 03/27/20 16:05 [place] Bodies Not Reportable 03/27/20 16:05 Hem Pathologist Commnt No 03/27/20 16:05 Sodium 141 mmol/L (137-145) 03/29/20 05:02 Potassium 4.2 mmol/L (3.6-5.0) 03/29/20 05:02 Chloride 104.4 mmol/L (98-107) 03/29/20 05:02 Carbon Dioxide 18 mmol/L (22-30) L 03/29/20 05:02 Anion Gap 23 mmol/L 03/29/20 05:02 BUN 52 mg/dL (7-17) H 03/29/20 05:02 Creatinine 1.8 mg/dL (0.7-1.2) H 03/29/20 05:02 Estimated GFR 26 ml/min 03/29/20 05:02 BUN/Creatinine Ratio 29 % 03/29/20 05:02 Glucose 58 mg/dL (65-100) L 03/29/20 05:02 POC Glucose 61 (70-105) L 03/29/20 08:21 Hemoglobin A1c 5.7 % (4-6) 03/27/20 16:05 Calcium 8.2 mg/dL (8.4-10.2) L 03/29/20 05:02 Phosphorus 3.60 mg/dL (2.5-4.5) 03/29/20 05:02 Magnesium 1.70 mg/dL (1.7-2.3) 03/29/20 07:43 Ferritin 86.6 ng/mL (13.0-400.0) 03/29/20 05:02 Total Bilirubin 0.20 mg/dL (0.1-1.2) 03/27/20 16:05 AST 15 units/L (5-40) 03/27/20 16:05 ALT 14 units/L (7-56) 03/27/20 16:05 Alkaline Phosphatase 56 units/L (35-129) 03/27/20 16:05 Total Creatine Kinase 136 units/L (30-135) H 03/28/20 11:18 Total Protein 6.2 g/dL (6.3-8.2) L 03/27/20 16:05 Albumin 3.6 g/dL (3.9-5) L 03/27/20 16:05 Albumin/Globulin Ratio 1.4 % 03/27/20 16:05 Vitamin B12 305.5 pg/mL (211-911) 03/29/20 05:02 Urine Color Yellow (Yellow) 03/27/20 16:47 Urine Turbidity Slightly-cloudy (Clear) 03/27/20 16:47 Urine pH 5.0 (5.0-7.0) 03/27/20 16:47 Ur Specific [place] 1.015 (1.003-1.030) 03/27/20 16:47 Urine Protein <15 mg/dl mg/dL (Negative) 03/27/20 16:47 Urine Glucose (UA) Neg mg/dL (Negative) 03/27/20 16:47 Urine Ketones Neg mg/dL (Negative) 03/27/20 16:47 Urine Blood Sm (Negative) 03/27/20 16:47 Urine Nitrite Neg (Negative) 03/27/20 16:47 Urine Bilirubin Neg (Negative) 03/27/20 16:47 Urine Urobilinogen < 2.0 mg/dL (<2.0) 03/27/20 16:47 Ur Leukocyte Esterase Neg (Negative) 03/27/20 16:47 Urine WBC (Auto) 1.0 /HPF (0.0-6.0) 03/27/20 16:47 Urine RBC (Auto) < 1.0 /HPF (0.0-6.0) 03/27/20 16:47 Urine Mucus Few /HPF 03/27/20 16:47 [place]/IV: Voiding Method Incontinent IV Catheter Type [Right Upper Peripheral IV arm] IV Catheter Type [Left Peripheral IV Antecubital] Active Medications - Current Medications Current Medications: Generic Name Dose Route Start Last Admin Trade Name Freq PRN Reason Stop Dose Admin Acetaminophen 650 mg 03/27/20 23:54 03/28/20 21:37 Tylenol PO 650 mg Q4H PRN Administration Pain, Mild (1-3) Dextrose 0 ml 03/27/20 22:54 D50w (25gm) Syringe IV Q30MIN PRN Hypoglycemia Protocol Haloperidol Lactate 1 mg 03/29/20 08:45 Haldol IM Q6H PRN Agitation Sodium Bicarbonate 75 meq/ 1,075 mls @ 75 mls/hr 03/28/20 21:00 03/28/20 22:02 Sodium Chloride IV 75 mls/hr DIRECT LUIS ALBERTO Administration Insulin Human Regular 0 units 03/28/20 07:30 03/29/20 07:30 Humulin R SUB-Q Not Given AC LUIS ALBERTO Protocol Insulin Human Regular 0 units 03/28/20 22:00 03/28/20 22:28 Humulin R SUB-Q 1 units QHS LUIS ALBERTO Administration Protocol Multivitamins/Minerals 1 each 03/29/20 10:00 Theragran-M Tab PO QDAY LUIS ALBERTO Pantoprazole Sodium 40 mg 03/29/20 10:00 Protonix PO QDAY LUIS ALBERTO Nutrition/Malnutrition Assess - Dietary Evaluation Nutrition/Malnutrition Findings: Nutrition Notes Start: 03/28/20 13:27 Freq: Status: Active Protocol: Document 03/28/20 13:27 LM (Rec: 03/28/20 13:40 LM [id number]) Nutrition Notes Need for Assessment generated from: MD Order,Low BMI Initial or Follow up Assessment Current Diagnosis CKD(stage I-IV),Diabetes, Hypertension Other Pertinent Diagnosis FTT, dementia, frequent falls Current Diet consistent CHO/low sodium Labs/Tests POC glu 183 Pertinent Medications Reviewed Height 5 ft 4 in Weight 36.5 kg [place] Body Weight (kg) 54.54 BMI 13.8 Subjective/Other Information MD consult for malnutrition and ONS. Screen for low BMI. Pt not appropriate for assessment at time of visit. 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 Will order Nepro for pt for extra kcal and CHO contol. 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 No Is Patient Ambulatory and/or Out of Bed Yes REE-([place]-St. Jeor-ambulatory/OOB) [ 1007.500 [id number]] Kcal/Kg value to use for calculation 40 Approximate Energy Requirements Using 1460 kcal/Kg Calculation Used for Recommendations Kcal/kg Additional Notes Protein: 44-56g (1.2-1.5g/kg) Fluid: 1ml/kcal Nutrition Intervention Change Diet Order: continue Add Supplement/Snack (indicate name/kcal Nepro BID /protein ) Provides kCal: 850 Provides Protein (gm) 38 Goal #1 meet at least 80% of energy and protein needs Anticipated Discharge Needs: cardiac/consistent CHO Follow-Up By: 03/30/20 Additional Comments F/U for PO/ONS tolerance
--- NOTE | 2020-03-29 09:30 | Progress Note ---
Assessment and Plan renal failure, possible AL on CKD, baseline Cr is unknown Anemia Fall Metabolic acidosis Cr is trending down cont current IVF urine studies are pending renal US negative for obstruction renally dose meds Strict I&O Daily weight Srini Ochoa MD [phone] Subjective Date of service: 03/29/20 Principal diagnosis: AL Interval history: answers simple questions, no family at bedside Objective - Vital Signs Vital signs: Vital Signs - 12hr 03/28/20 03/28/20 03/29/20 21:36 22:00 03:55 Temperature 98.0 F 98.0 F Pulse Rate [ 96 H Left Apical] Respiratory 16 18 20 Rate Blood Pressure 194/62 175/71 O2 Sat by Pulse 99 Oximetry - General Appearance General appearance: well-developed, cachectic EENT: ATNC, PERRL, mucous membranes dry Neck: no JVD, no carotid bruit Respiratory: Present: Clear to Ascultation. Absent: Rales, Ronchi Cardiology: regular, S1S2 Gastrointestinal: normoactive bowel sounds Integumentary: no rash, warm and dry Neurologic: no focal deficit Musculoskeletal: other (no edema in BLE) Psychiatric: other (answers simple questions) - Lab 03/29/20 05:02 03/29/20 05:02 Most recent lab results Calcium 8.2 mg/dL (8.4-10.2) L 03/29/20 05:02 Phosphorus 3.60 mg/dL (2.5-4.5) 03/29/20 05:02 Magnesium 1.70 mg/dL (1.7-2.3) 03/29/20 07:43 Medications & Allergies - Medications Allergies/Adverse Reactions: Allergies codeine Allergy (Verified 03/27/20 16:55) Unknown Home Medications: Home Medications Medication Instructions Recorded Confirmed Last Taken Type Unobtainable 03/28/20 03/28/20 Unknown History Active Medications: Generic Name Dose Route Start Last Admin Trade Name Freq PRN Reason Stop Dose Admin Acetaminophen 650 mg 03/27/20 23:54 03/28/20 21:37 Tylenol PO 650 mg Q4H PRN Administration Pain, Mild (1-3) Dextrose 0 ml 03/27/20 22:54 D50w (25gm) Syringe IV Q30MIN PRN Hypoglycemia Protocol Haloperidol Lactate 1 mg 03/29/20 08:45 Haldol IM Q6H PRN Agitation Sodium Bicarbonate 75 meq/ 1,075 mls @ 75 mls/hr 03/28/20 21:00 03/28/20 22:02 Sodium Chloride IV 75 mls/hr DIRECT LUIS ALBERTO Administration Insulin Human Regular 0 units 03/28/20 07:30 03/29/20 07:30 Humulin R SUB-Q Not Given AC LUIS ALBERTO Protocol Insulin Human Regular 0 units 03/28/20 22:00 03/28/20 22:28 Humulin R SUB-Q 1 units QHS LUIS ALBERTO Administration Protocol Multivitamins/Minerals 1 each 03/29/20 10:00 Theragran-M Tab PO QDAY LUIS ALBERTO Pantoprazole Sodium 40 mg 03/29/20 10:00 Protonix PO QDAY LUIS ALBERTO
[2020-03-29] MEDS: PANTOPRAZOLE 40 MG TAB PO SCH (11:26)
[2020-03-29] MEDS: MULTIVITAMINS,THER W-MINERALS TAB PO SCH (11:26)
[2020-03-29] MEDS ORDERED: CYANOCOBALAMIN (VIT B-12) 1000 MCG/1 ML INJ IM ONE (12:00)
--- NOTE | 2020-03-29 13:45 | Gastroenterology Progress Note ---
Assessment and Plan - Patient Problems (1) Chronic anemia Current Visit: Yes Status: Acute Plan to address problem: - Macrocytic, and B12 borderline in 2015. Is also heme (+) but no melena or hematochezia. - B12 still low, and will give shot x 1, and continue MVI daily. - Protonix daily therapy, and will avoid NSAIDs (DVT PPY is OK). - Nutritional support ordered/continue regular diet. - Endoscopy currently not planned. - Will sign off at present, as anemia appears to be mostly malnutrition/B12 related; please reconsult if gross bleeding develops. Subjective Date of service: 03/29/20 Principal diagnosis: Chronic Anemia Interval history: The patient is still disoriented, but is tolerating her regular diet without N/V/abdominal pain. She has had no melena/hematochezia/hematemesis. Objective - Constitutional Vitals: Temp Pulse Resp BP Pulse Ox 98.0 F 96 H 20 175/71 99 03/29/20 03:55 03/28/20 22:00 03/29/20 03:55 03/29/20 03:55 03/28/20 22:00 General appearance: mild distress, other (Disoriented and perseverating) - Respiratory Respiratory effort: normal Respiratory: bilateral: CTA - Cardiovascular Rhythm: regular Heart Sounds: Present: S1 & S2 - Gastrointestinal General gastrointestinal: Present: soft, non-tender, non-distended - Labs CBC & Chem 7: 03/29/20 05:02 03/29/20 05:02 Labs: Laboratory Results - last 24 hr 03/28/20 03/28/20 03/28/20 11:18 16:19 21:52 WBC RBC Hgb Hct MCV MCH MCHC RDW Plt Count Lymph % (Auto) [place] % (Auto) Eos % (Auto) Baso % (Auto) Lymph # [place] # Eos # Baso # Seg Neutrophils % Seg Neutrophils # Sodium Potassium Chloride Carbon Dioxide Anion Gap BUN Creatinine Estimated GFR BUN/Creatinine Ratio Glucose POC Glucose 89 179 H Calcium Phosphorus Magnesium Ferritin Total Creatine Kinase 136 H Vitamin B12 03/29/20 03/29/20 03/29/20 05:02 05:02 05:02 WBC 6.8 RBC 2.49 L Hgb 8.7 L Hct 26.6 L MCV 107 H MCH 35 H MCHC 33 RDW 17.3 H Plt Count 263 Lymph % (Auto) 3.1 L [place] % (Auto) 9.5 H Eos % (Auto) 0.1 Baso % (Auto) 0.6 Lymph # 0.2 L [place] # 0.6 Eos # 0.0 Baso # 0.0 Seg Neutrophils % 86.7 H Seg Neutrophils # 5.9 Sodium 141 Potassium 4.2 Chloride 104.4 Carbon Dioxide 18 L Anion Gap 23 BUN 52 H Creatinine 1.8 H Estimated GFR 26 BUN/Creatinine Ratio 29 Glucose 58 L POC Glucose Calcium 8.2 L Phosphorus 3.60 Magnesium Ferritin 86.6 Total Creatine Kinase Vitamin B12 03/29/20 03/29/20 03/29/20 05:02 07:43 08:21 WBC RBC Hgb Hct MCV MCH MCHC RDW Plt Count Lymph % (Auto) [place] % (Auto) Eos % (Auto) Baso % (Auto) Lymph # [place] # Eos # Baso # Seg Neutrophils % Seg Neutrophils # Sodium Potassium Chloride Carbon Dioxide Anion Gap BUN Creatinine Estimated GFR BUN/Creatinine Ratio Glucose POC Glucose 61 L Calcium Phosphorus Magnesium 1.70 Ferritin Total Creatine Kinase Vitamin B12 305.5 03/29/20 11:59 WBC RBC Hgb Hct MCV MCH MCHC RDW Plt Count Lymph % (Auto) [place] % (Auto) Eos % (Auto) Baso % (Auto) Lymph # [place] # Eos # Baso # Seg Neutrophils % Seg Neutrophils # Sodium Potassium Chloride Carbon Dioxide Anion Gap BUN Creatinine Estimated GFR BUN/Creatinine Ratio Glucose POC Glucose 228 H Calcium Phosphorus Magnesium Ferritin Total Creatine Kinase Vitamin B12
[2020-03-29] MEDS: SODIUM BICARBONATE 75 MEQ in SODIUM CHLORIDE 0.45% 1000 ML 1,000 ML IV SCH (22:38)
[2020-03-30 06:13] LABS: Basophils % (Auto) 0.2 % (0.0-1.8); Hematocrit 27.8 % (30.3-42.9); Hemoglobin 8.9 gm/dl (10.1-14.3); Lymphocytes # (Auto) 0.4 K/mm3 (1.2-5.4); Lymphocytes % (Auto) 4.7 % (13.4-35.0); Mean Corpuscular HGB Conc 32 % (30-34); Mean Corpuscular Volume 108 fl (79-97); Monocytes # (Auto) 0.6 K/mm3 (0.0-0.8); Platelet Count 251 K/mm3 (140-440); Red Blood Count 2.59 M/mm3 (3.65-5.03); Red Cell Distribution Width 16.6 % (13.2-15.2)
[2020-03-30 06:40] LABS: Calcium 8.4 mg/dL (8.4-10.2)
--- NOTE | 2020-03-30 08:05 | Progress Note ---
Assessment and Plan Assessment and plan: --Chronic anemia; H&H improved to 8.9 Due to malnutrition, poor oral intake Low hemoglobin at the time of admission probably due to hemodilution Advised ferrous sulfate, nutrition supplements --Heme positive stool; no evidence of hematemesis melena GI evaluation noted, no plans of endoscopy, cleared for discharge --Acute versus acute on chronic kidney disease Patient's baseline creatinine levels unknown Probably secondary to vasomotor nephropathy Creatinine improving today to 1.8 Nephrology following --Severe malnutrition; BMI 14.2 Nutrition supplements, nutrition consult Supportive care --History of fall; fall precautions Physical therapy 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 Pending placement History Interval history: Patient seen and examined medical records reviewed Patient is more alert and awake oriented today Responding appropriately Sometimes agitated getting out of the bed Restraint for safety Vital signs noted Hospitalist Physical - Constitutional Vitals: Temp Pulse Resp BP Pulse Ox 98.0 F 103 H 18 159/72 99 03/30/20 05:05 03/30/20 05:05 03/30/20 05:05 03/30/20 05:05 03/30/20 05:05 General appearance: Present: no acute distress, cachectic, disheveled - EENT Eyes: Present: PERRL, EOM intact - Neck Neck: Present: supple, normal ROM - Respiratory Respiratory effort: normal Respiratory: bilateral: diminished, negative: rales, rhonchi, wheezing - Cardiovascular Rhythm: regular Heart Sounds: Present: S1 & S2 - Extremities Extremities: no ischemia, No edema Extremity abnormal: other (Chronic skin changes) - Abdominal General gastrointestinal: soft, non-tender, non-distended, normal bowel sounds - Integumentary Integumentary: Present: clear, warm - Psychiatric Psychiatric: appropriate mood/affect, cooperative - Neurologic Neurologic: moves all extremities Results - Labs CBC & Chem 7: 03/30/20 05:06 03/30/20 05:06 Labs: Laboratory Last Values WBC 7.8 K/mm3 (4.5-11.0) 03/30/20 05:06 RBC 2.59 M/mm3 (3.65-5.03) L 03/30/20 05:06 Hgb 8.9 gm/dl (10.1-14.3) L 03/30/20 05:06 Hct 27.8 % (30.3-42.9) L 03/30/20 05:06 MCV 108 fl (79-97) H 03/30/20 05:06 MCH 34 pg (28-32) H 03/30/20 05:06 MCHC 32 % (30-34) 03/30/20 05:06 RDW 16.6 % (13.2-15.2) H 03/30/20 05:06 Plt Count 251 K/mm3 (140-440) 03/30/20 05:06 Lymph % (Auto) 4.7 % (13.4-35.0) L 03/30/20 05:06 [place] % (Auto) 8.0 % (0.0-7.3) H 03/30/20 05:06 Eos % (Auto) 0.0 % (0.0-4.3) 03/30/20 05:06 Baso % (Auto) 0.2 % (0.0-1.8) 03/30/20 05:06 Lymph # 0.4 K/mm3 (1.2-5.4) L 03/30/20 05:06 [place] # 0.6 K/mm3 (0.0-0.8) 03/30/20 05:06 Eos # 0.0 K/mm3 (0.0-0.4) 03/30/20 05:06 Baso # 0.0 K/mm3 (0.0-0.1) 03/30/20 05:06 Add Manual Diff Complete 03/27/20 16:05 Total Counted 100 03/27/20 16:05 Seg Neutrophils % 87.1 % (40.0-70.0) H 03/30/20 05:06 Seg Neuts % (Manual) 91.0 % (40.0-70.0) H 03/27/20 16:05 Band Neutrophils % 0 % 03/27/20 16:05 Lymphocytes % (Manual) 6.0 % (13.4-35.0) L 03/27/20 16:05 Reactive Lymphs % (Man) 0 % 03/27/20 16:05 Monocytes % (Manual) 3.0 % (0.0-7.3) 03/27/20 16:05 Eosinophils % (Manual) 0 % (0.0-4.3) 03/27/20 16:05 Basophils % (Manual) 0 % (0.0-1.8) 03/27/20 16:05 Metamyelocytes % 0 % 03/27/20 16:05 Myelocytes % 0 % 03/27/20 16:05 Promyelocytes % 0 % 03/27/20 16:05 Blast Cells % 0 % 03/27/20 16:05 Nucleated RBC % Not Reportable 03/27/20 16:05 Seg Neutrophils # 6.8 K/mm3 (1.8-7.7) 03/30/20 05:06 Seg Neutrophils # Man 6.5 K/mm3 (1.8-7.7) 03/27/20 16:05 Band Neutrophils # 0.0 K/mm3 03/27/20 16:05 Lymphocytes # (Manual) 0.4 K/mm3 (1.2-5.4) L 03/27/20 16:05 Abs React Lymphs (Man) 0.0 K/mm3 03/27/20 16:05 Monocytes # (Manual) 0.2 K/mm3 (0.0-0.8) 03/27/20 16:05 Eosinophils # (Manual) 0.0 K/mm3 (0.0-0.4) 03/27/20 16:05 Basophils # (Manual) 0.0 K/mm3 (0.0-0.1) 03/27/20 16:05 Metamyelocytes # 0.0 K/mm3 03/27/20 16:05 Myelocytes # 0.0 K/mm3 03/27/20 16:05 Promyelocytes # 0.0 K/mm3 03/27/20 16:05 Blast Cells # 0.0 K/mm3 03/27/20 16:05 WBC Morphology Not Reportable 03/27/20 16:05 Hypersegmented Neuts Not Reportable 03/27/20 16:05 Hyposegmented Neuts Not Reportable 03/27/20 16:05 Hypogranular Neuts Not Reportable 03/27/20 16:05 Smudge Cells Not Reportable 03/27/20 16:05 Toxic Granulation Not Reportable 03/27/20 16:05 Toxic Vacuolation Not Reportable 03/27/20 16:05 Dohle Bodies Not Reportable 03/27/20 16:05 Pelger-Huet Anomaly Not Reportable 03/27/20 16:05 [place] Rods Not Reportable 03/27/20 16:05 Platelet Estimate Not Reportable 03/27/20 16:05 Clumped Platelets Not Reportable 03/27/20 16:05 Plt Clumps, EDTA Not Reportable 03/27/20 16:05 Large Platelets Not Reportable 03/27/20 16:05 Giant Platelets Not Reportable 03/27/20 16:05 Platelet Satelliting Not Reportable 03/27/20 16:05 Plt Morphology Comment Not Reportable 03/27/20 16:05 RBC Morphology Normal 03/27/20 16:05 Dimorphic RBCs Not Reportable 03/27/20 16:05 Polychromasia Not Reportable 03/27/20 16:05 Hypochromasia Not Reportable 03/27/20 16:05 Poikilocytosis Not Reportable 03/27/20 16:05 Anisocytosis Not Reportable 03/27/20 16:05 Microcytosis Not Reportable 03/27/20 16:05 Macrocytosis Not Reportable 03/27/20 16:05 Spherocytes Not Reportable 03/27/20 16:05 Pappenheimer Bodies Not Reportable 03/27/20 16:05 Sickle Cells Not Reportable 03/27/20 16:05 Target Cells Not Reportable 03/27/20 16:05 Tear Drop Cells Not Reportable 03/27/20 16:05 Ovalocytes Not Reportable 03/27/20 16:05 Helmet Cells Not Reportable 03/27/20 16:05 [place] Bodies Not Reportable 03/27/20 16:05 [place] Rings Not Reportable 03/27/20 16:05 [place] Cells Not Reportable 03/27/20 16:05 Bite Cells Not Reportable 03/27/20 16:05 Crenated Cell Not Reportable 03/27/20 16:05 Elliptocytes Not Reportable 03/27/20 16:05 Acanthocytes (Spur) Not Reportable 03/27/20 16:05 Rouleaux Not Reportable 03/27/20 16:05 Hemoglobin C Crystals Not Reportable 03/27/20 16:05 Schistocytes Not Reportable 03/27/20 16:05 Malaria parasites Not Reportable 03/27/20 16:05 Shane Bodies Not Reportable 03/27/20 16:05 Hem Pathologist Commnt No 03/27/20 16:05 Sodium 142 mmol/L (137-145) 03/30/20 05:06 Potassium 4.1 mmol/L (3.6-5.0) 03/30/20 05:06 Chloride 101.1 mmol/L (98-107) 03/30/20 05:06 Carbon Dioxide 18 mmol/L (22-30) L 03/30/20 05:06 Anion Gap 27 mmol/L 03/30/20 05:06 BUN 49 mg/dL (7-17) H 03/30/20 05:06 Creatinine 1.8 mg/dL (0.7-1.2) H 03/30/20 05:06 Estimated GFR 26 ml/min 03/30/20 05:06 BUN/Creatinine Ratio 27 % 03/30/20 05:06 Glucose 123 mg/dL (65-100) H 03/30/20 05:06 POC Glucose 66 (70-105) L 03/29/20 23:58 Hemoglobin A1c 5.7 % (4-6) 03/27/20 16:05 Calcium 8.4 mg/dL (8.4-10.2) 03/30/20 05:06 Phosphorus 3.50 mg/dL (2.5-4.5) 03/30/20 05:06 Magnesium 1.70 mg/dL (1.7-2.3) 03/29/20 07:43 Ferritin 86.6 ng/mL (13.0-400.0) 03/29/20 05:02 Total Bilirubin 0.20 mg/dL (0.1-1.2) 03/27/20 16:05 AST 15 units/L (5-40) 03/27/20 16:05 ALT 14 units/L (7-56) 03/27/20 16:05 Alkaline Phosphatase 56 units/L (35-129) 03/27/20 16:05 Total Creatine Kinase 136 units/L (30-135) H 03/28/20 11:18 Total Protein 6.2 g/dL (6.3-8.2) L 03/27/20 16:05 Albumin 3.6 g/dL (3.9-5) L 03/27/20 16:05 Albumin/Globulin Ratio 1.4 % 03/27/20 16:05 Vitamin B12 305.5 pg/mL (211-911) 03/29/20 05:02 Urine Color Yellow (Yellow) 03/27/20 16:47 Urine Turbidity Slightly-cloudy (Clear) 03/27/20 16:47 Urine pH 5.0 (5.0-7.0) 03/27/20 16:47 Ur Specific [place] 1.015 (1.003-1.030) 03/27/20 16:47 Urine Protein <15 mg/dl mg/dL (Negative) 03/27/20 16:47 Urine Glucose (UA) Neg mg/dL (Negative) 03/27/20 16:47 Urine Ketones Neg mg/dL (Negative) 03/27/20 16:47 Urine Blood Sm (Negative) 03/27/20 16:47 Urine Nitrite Neg (Negative) 03/27/20 16:47 Urine Bilirubin Neg (Negative) 03/27/20 16:47 Urine Urobilinogen < 2.0 mg/dL (<2.0) 03/27/20 16:47 Ur Leukocyte Esterase Neg (Negative) 03/27/20 16:47 Urine WBC (Auto) 1.0 /HPF (0.0-6.0) 03/27/20 16:47 Urine RBC (Auto) < 1.0 /HPF (0.0-6.0) 03/27/20 16:47 Urine Mucus Few /HPF 03/27/20 16:47 [place]/IV: Voiding Method Diaper IV Catheter Type [Right Upper Peripheral IV arm] IV Catheter Type [Left Peripheral IV Antecubital] Active Medications - Current Medications Current Medications: Generic Name Dose Route Start Last Admin Trade Name Freq PRN Reason Stop Dose Admin Acetaminophen 650 mg 03/27/20 23:54 03/28/20 21:37 Tylenol PO 650 mg Q4H PRN Administration Pain, Mild (1-3) Dextrose 0 ml 03/27/20 22:54 D50w (25gm) Syringe IV Q30MIN PRN Hypoglycemia Protocol Haloperidol Lactate 1 mg 03/29/20 08:45 Haldol IM Q6H PRN Agitation Sodium Bicarbonate 75 meq/ 1,075 mls @ 75 mls/hr 03/28/20 21:00 03/29/20 22:38 Sodium Chloride IV 75 mls/hr DIRECT LUIS ALBERTO Administration Insulin Human Regular 0 units 03/28/20 07:30 03/29/20 18:52 Humulin R SUB-Q 4 units AC LUIS ALBERTO Administration Protocol Insulin Human Regular 0 units 03/28/20 22:00 03/29/20 22:36 Humulin R SUB-Q Not Given QHS LUIS ALBERTO Protocol Multivitamins/Minerals 1 each 03/29/20 10:00 03/29/20 11:26 Theragran-M Tab PO 1 each QDAY LUIS ALBERTO Administration Pantoprazole Sodium 40 mg 03/29/20 10:00 03/29/20 11:26 Protonix PO 40 mg QDAY LUIS ALBERTO Administration Nutrition/Malnutrition Assess - Dietary Evaluation Nutrition/Malnutrition Findings: Nutrition Notes Start: 03/28/20 13:27 Freq: Status: Active Protocol: Document 03/28/20 13:27 LM (Rec: 03/28/20 13:40 LM [email or web address]) Nutrition Notes Need for Assessment generated from: MD Order,Low BMI Initial or Follow up Assessment Current Diagnosis CKD(stage I-IV),Diabetes, Hypertension Other Pertinent Diagnosis FTT, dementia, frequent falls Current Diet consistent CHO/low sodium Labs/Tests POC glu 183 Pertinent Medications Reviewed Height 5 ft 4 in Weight 36.5 kg [place] Body Weight (kg) 54.54 BMI 13.8 Subjective/Other Information MD consult for malnutrition and ONS. Screen for low BMI. Pt not appropriate for assessment at time of visit. Pt with muscle wasting and weak soda clerk strength. Will order Nepro for pt for extra kcal and CHO contol. Burn Absent Trauma Absent Minimum of two criteria Yes Muscle Mass Mild Depletion (non-severe) Reduced Private Watchman Strength N/A (non-severe) #1 Nutrition Diagnosis Malnutrition Etiology dementia, advanced age As Evidenced by Signs and Symptoms pt with muscle wasting and weak soda clerk strength Is patient on ventilator? No Is Patient Ambulatory and/or Out of Bed Yes REE-([place]-St. Jeor-ambulatory/OOB) [ 1007.500 [id number]] Kcal/Kg value to use for calculation 40 Approximate Energy Requirements Using 1460 kcal/Kg Calculation Used for Recommendations Kcal/kg Additional Notes Protein: 44-56g (1.2-1.5g/kg) Fluid: 1ml/kcal Nutrition Intervention Change Diet Order: continue Add Supplement/Snack (indicate name/kcal Nepro BID /protein ) Provides kCal: 850 Provides Protein (gm) 38 Goal #1 meet at least 80% of energy and protein needs Anticipated Discharge Needs: cardiac/consistent CHO Follow-Up By: 03/30/20 Additional Comments F/U for PO/ONS tolerance
[2020-03-30] MEDS: INSULIN REGULAR, HUMAN 100 UNITS/1 ML SUB-Q SCH ×3 (10:21→18:52)
[2020-03-30] MEDS: PANTOPRAZOLE 40 MG TAB PO SCH (10:21)
[2020-03-30] MEDS: MULTIVITAMINS,THER W-MINERALS TAB PO SCH (10:21)
--- NOTE | 2020-03-30 13:16 | Progress Note ---
Assessment and Plan renal failure, possible AL on CKD, baseline Cr is unknown Anemia Fall Metabolic acidosis stable kidney function Okto be discharged from renal standpoint, to be followed in my office upon discharge cont current IVF renal US negative for obstruction renally dose meds Strict I&O Daily weight Srini Ochoa MD [phone] Subjective Date of service: 03/30/20 Principal diagnosis: Chronic Anemia Interval history: no overnight events reported, no family at bedside Objective - Vital Signs Vital signs: Vital Signs - 12hr 03/30/20 03/30/20 05:05 11:36 Temperature 98.0 F 97.9 F Pulse Rate 103 H 104 H Respiratory 18 18 Rate Blood Pressure 159/72 113/52 O2 Sat by Pulse 99 98 Oximetry - General Appearance General appearance: well-developed, cachectic EENT: ATNC, PERRL Neck: no JVD Respiratory: Present: Clear to Ascultation Cardiology: regular Gastrointestinal: normoactive bowel sounds Integumentary: no rash, warm and dry Neurologic: other (follows simple commands) Musculoskeletal: other (no edema in BLE) Psychiatric: other (answers simple questions) - Lab 03/30/20 05:06 03/30/20 05:06 Most recent lab results Calcium 8.4 mg/dL (8.4-10.2) 03/30/20 05:06 Phosphorus 3.50 mg/dL (2.5-4.5) 03/30/20 05:06 Magnesium 1.70 mg/dL (1.7-2.3) 03/29/20 07:43 Medications & Allergies - Medications Allergies/Adverse Reactions: Allergies codeine Allergy (Verified 03/27/20 16:55) Unknown Home Medications: Home Medications Medication Instructions Recorded Confirmed Last Taken Type Unobtainable 03/28/20 03/28/20 Unknown History Active Medications: Generic Name Dose Route Start Last Admin Trade Name Freq PRN Reason Stop Dose Admin Acetaminophen 650 mg 03/27/20 23:54 03/28/20 21:37 Tylenol PO 650 mg Q4H PRN Administration Pain, Mild (1-3) Dextrose 0 ml 03/27/20 22:54 D50w (25gm) Syringe IV Q30MIN PRN Hypoglycemia Protocol Haloperidol Lactate 1 mg 03/29/20 08:45 Haldol IM Q6H PRN Agitation Sodium Bicarbonate 75 meq/ 1,075 mls @ 75 mls/hr 03/28/20 21:00 03/29/20 22:38 Sodium Chloride IV 75 mls/hr DIRECT LUIS ALBERTO Administration Insulin Human Regular 0 units 03/28/20 07:30 03/30/20 10:21 Humulin R SUB-Q 1 units AC LUIS ALBERTO Administration Protocol Insulin Human Regular 0 units 03/28/20 22:00 03/29/20 22:36 Humulin R SUB-Q Not Given QHS LUIS ALBERTO Protocol Multivitamins/Minerals 1 each 03/29/20 10:00 03/30/20 10:21 Theragran-M Tab PO 1 each QDAY LUIS ALBERTO Administration Pantoprazole Sodium 40 mg 03/29/20 10:00 03/30/20 10:21 Protonix PO 40 mg QDAY LUIS ALBERTO Administration
[2020-03-30] MEDS: ACETAMINOPHEN 325 MG TAB PO PRN ×3 (13:41→22:40)
[2020-03-30] MEDS: SODIUM BICARBONATE 75 MEQ in SODIUM CHLORIDE 0.45% 1000 ML 1,000 ML IV SCH (19:30)
[2020-03-30] MEDS: INSULIN LISPRO 100 UNIT/ML SUB-Q SCH (22:36)
[2020-03-31 05:26] LABS: Basophils % (Auto) 0.3 % (0.0-1.8); Hematocrit 25.2 % (30.3-42.9); Hemoglobin 8.3 gm/dl (10.1-14.3); Lymphocytes # (Auto) 0.5 K/mm3 (1.2-5.4); Lymphocytes % (Auto) 3.6 % (13.4-35.0); Mean Corpuscular HGB Conc 33 % (30-34); Mean Corpuscular Volume 105 fl (79-97); Monocytes # (Auto) 0.9 K/mm3 (0.0-0.8); Monocytes % (Auto) 6.8 % (0.0-7.3); Platelet Count 242 K/mm3 (140-440); Red Cell Distribution Width 15.9 % (13.2-15.2)
[2020-03-31 05:42] LABS: Calcium 7.9 mg/dL (8.4-10.2)
[2020-03-31] MEDS: SODIUM BICARBONATE 75 MEQ in SODIUM CHLORIDE 0.45% 1000 ML 1,000 ML IV SCH ×2 (05:45→17:51)
[2020-03-31] MEDS: MULTIVITAMINS,THER W-MINERALS TAB PO SCH (09:36)
[2020-03-31] MEDS: PANTOPRAZOLE 40 MG TAB PO SCH (09:36)
--- NOTE | 2020-03-31 09:40 | Progress Note ---
Assessment and Plan renal failure, possible AL on CKD, baseline Cr is unknown Anemia Fall Metabolic acidosis stable kidney function Ok to be discharged from renal standpoint, to be followed in my office upon discharge cont current IVF renal US negative for obstruction renally dose meds Strict I&O Daily weight will sign off Srini Ochoa MD [phone] Subjective Date of service: 03/31/20 Principal diagnosis: Chronic Anemia Interval history: patient is alert to self, c/o headaches Objective - Vital Signs Vital signs: Vital Signs - 12hr 03/30/20 03/30/20 03/31/20 22:00 22:34 03:40 Temperature 97.5 F L 97.4 F L Pulse Rate 97 H 73 Pulse Rate [ 97 H Right Brachial] Respiratory 18 18 16 Rate Blood Pressure 144/67 Blood Pressure 160/65 [Right] O2 Sat by Pulse 97 97 91 Oximetry - General Appearance General appearance: cachectic EENT: ATNC, PERRL Neck: no JVD, no carotid bruit Respiratory: Present: Clear to Ascultation Cardiology: regular, S1S2 Gastrointestinal: normoactive bowel sounds Integumentary: no rash, warm and dry Neurologic: no focal deficit, no asterixis Musculoskeletal: other (no ) - Lab 03/31/20 04:33 03/31/20 04:33 Most recent lab results Calcium 7.9 mg/dL (8.4-10.2) L 03/31/20 04:33 Phosphorus 2.60 mg/dL (2.5-4.5) D 03/31/20 04:33 Magnesium 1.70 mg/dL (1.7-2.3) 03/29/20 07:43 Medications & Allergies - Medications Allergies/Adverse Reactions: Allergies codeine Allergy (Verified 03/27/20 16:55) Unknown Home Medications: Home Medications Medication Instructions Recorded Confirmed Last Taken Type Unobtainable 03/28/20 03/28/20 Unknown History Active Medications: Generic Name Dose Route Start Last Admin Trade Name Freq PRN Reason Stop Dose Admin Acetaminophen 650 mg 03/27/20 23:54 03/30/20 22:40 Tylenol PO 650 mg Q4H PRN Administration Pain, Mild (1-3) Dextrose 0 ml 03/27/20 22:54 D50w (25gm) Syringe IV Q30MIN PRN Hypoglycemia Protocol Haloperidol Lactate 1 mg 03/29/20 08:45 Haldol IM Q6H PRN Agitation Sodium Bicarbonate 75 meq/ 1,075 mls @ 75 mls/hr 03/28/20 21:00 03/31/20 05:45 Sodium Chloride IV 75 mls/hr DIRECT LUIS ALBERTO Administration Insulin Human Lispro 0 unit 03/30/20 22:00 03/30/20 22:36 Humalog SUB-Q 8 unit ACHS LUIS ALBERTO Administration Protocol Multivitamins/Minerals 1 each 03/29/20 10:00 03/30/20 10:21 Theragran-M Tab PO 1 each QDAY LUIS ALBERTO Administration Pantoprazole Sodium 40 mg 03/29/20 10:00 03/30/20 10:21 Protonix PO 40 mg QDAY LUIS ALBERTO Administration
[2020-03-31] MEDS: INSULIN LISPRO 100 UNIT/ML SUB-Q SCH ×5 (09:42→22:10)
[2020-03-31] MEDS: ALPRAZolam 0.5 MG TAB PO PRN (12:16)
[2020-03-31] MEDS: ACETAMINOPHEN 325 MG TAB PO PRN (15:12)
[2020-03-31] MEDS ORDERED: ALUM-MAG HYDROXIDE-SIMETHICONE 200-200-20MG/5ML ORAL LIQD 30 ML PO PRN (15:47)
--- NOTE | 2020-03-31 15:47 | Progress Note ---
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 --Advanced age/dementia; Supportive care --Heme positive stool; no evidence of hematemesis melena GI evaluation noted, no plans of endoscopy, cleared for discharge --Chronic anemia; H&H improved to 8.9 Due to malnutrition, poor oral intake Low hemoglobin at the time of admission probably due to hemodilution Advised ferrous sulfate, nutrition supplements --Acute versus acute on chronic kidney disease Due to vasomotor nephropathy, nephrology following Creatinine improving today to 1.8, nephro cleared --DVT prophylaxis; SCDs --Full CODE STATUS --DC planning; pending placement Patient is medically stable for discharge. History Interval history: Patient seen and examined at the bedside Patient's chart and medications reviewed Patient is agitated and restless Getting out of the bed with history of falls Restraint for safety Vital signs noted Hospitalist Physical - Constitutional Vitals: Temp Pulse Resp BP Pulse Ox 97.0 F L 109 H 22 163/67 96 03/31/20 11:36 03/31/20 11:36 03/31/20 11:36 03/31/20 11:36 03/31/20 11:36 General appearance: Present: mild distress, cachectic, other (Confused, agitated, restraint for safety) - EENT Eyes: Present: PERRL, EOM intact - Neck Neck: Present: supple, normal ROM - Respiratory Respiratory effort: normal Respiratory: bilateral: diminished, negative: rales, rhonchi, wheezing - Cardiovascular Rhythm: regular Heart Sounds: Present: S1 & S2 - Extremities Extremities: no ischemia, abnormal (Superficial abrasions secondary to multiple falls) Extremity abnormal: edema - Abdominal General gastrointestinal: soft, non-tender, non-distended, normal bowel sounds - Integumentary Integumentary: Present: clear, warm - Psychiatric Psychiatric: agitated, other - Neurologic Neurologic: moves all extremities (Confused at times) Results - Labs CBC & Chem 7: 03/31/20 04:33 03/31/20 04:33 Labs: Laboratory Last Values WBC 13.0 K/mm3 (4.5-11.0) H 03/31/20 04:33 RBC 2.40 M/mm3 (3.65-5.03) L 03/31/20 04:33 Hgb 8.3 gm/dl (10.1-14.3) L 03/31/20 04:33 Hct 25.2 % (30.3-42.9) L 03/31/20 04:33 MCV 105 fl (79-97) H 03/31/20 04:33 MCH 34 pg (28-32) H 03/31/20 04:33 MCHC 33 % (30-34) 03/31/20 04:33 RDW 15.9 % (13.2-15.2) H 03/31/20 04:33 Plt Count 242 K/mm3 (140-440) 03/31/20 04:33 Lymph % (Auto) 3.6 % (13.4-35.0) L 03/31/20 04:33 [place] % (Auto) 6.8 % (0.0-7.3) 03/31/20 04:33 Eos % (Auto) 0.0 % (0.0-4.3) 03/31/20 04:33 Baso % (Auto) 0.3 % (0.0-1.8) 03/31/20 04:33 Lymph # 0.5 K/mm3 (1.2-5.4) L 03/31/20 04:33 [place] # 0.9 K/mm3 (0.0-0.8) H 03/31/20 04:33 Eos # 0.0 K/mm3 (0.0-0.4) 03/31/20 04:33 Baso # 0.0 K/mm3 (0.0-0.1) 03/31/20 04:33 Add Manual Diff Complete 03/27/20 16:05 Total Counted 100 03/27/20 16:05 Seg Neutrophils % 89.3 % (40.0-70.0) H 03/31/20 04:33 Seg Neuts % (Manual) 91.0 % (40.0-70.0) H 03/27/20 16:05 Band Neutrophils % 0 % 03/27/20 16:05 Lymphocytes % (Manual) 6.0 % (13.4-35.0) L 03/27/20 16:05 Reactive Lymphs % (Man) 0 % 03/27/20 16:05 Monocytes % (Manual) 3.0 % (0.0-7.3) 03/27/20 16:05 Eosinophils % (Manual) 0 % (0.0-4.3) 03/27/20 16:05 Basophils % (Manual) 0 % (0.0-1.8) 03/27/20 16:05 Metamyelocytes % 0 % 03/27/20 16:05 Myelocytes % 0 % 03/27/20 16:05 Promyelocytes % 0 % 03/27/20 16:05 Blast Cells % 0 % 03/27/20 16:05 Nucleated RBC % Not Reportable 03/27/20 16:05 Seg Neutrophils # 11.6 K/mm3 (1.8-7.7) H 03/31/20 04:33 Seg Neutrophils # Man 6.5 K/mm3 (1.8-7.7) 03/27/20 16:05 Band Neutrophils # 0.0 K/mm3 03/27/20 16:05 Lymphocytes # (Manual) 0.4 K/mm3 (1.2-5.4) L 03/27/20 16:05 Abs React Lymphs (Man) 0.0 K/mm3 03/27/20 16:05 Monocytes # (Manual) 0.2 K/mm3 (0.0-0.8) 03/27/20 16:05 Eosinophils # (Manual) 0.0 K/mm3 (0.0-0.4) 03/27/20 16:05 Basophils # (Manual) 0.0 K/mm3 (0.0-0.1) 03/27/20 16:05 Metamyelocytes # 0.0 K/mm3 03/27/20 16:05 Myelocytes # 0.0 K/mm3 03/27/20 16:05 Promyelocytes # 0.0 K/mm3 03/27/20 16:05 Blast Cells # 0.0 K/mm3 03/27/20 16:05 WBC Morphology Not Reportable 03/27/20 16:05 Hypersegmented Neuts Not Reportable 03/27/20 16:05 Hyposegmented Neuts Not Reportable 03/27/20 16:05 Hypogranular Neuts Not Reportable 03/27/20 16:05 Smudge Cells Not Reportable 03/27/20 16:05 Toxic Granulation Not Reportable 03/27/20 16:05 Toxic Vacuolation Not Reportable 03/27/20 16:05 Dohle Bodies Not Reportable 03/27/20 16:05 Pelger-Huet Anomaly Not Reportable 03/27/20 16:05 Palak Rods Not Reportable 03/27/20 16:05 Platelet Estimate Not Reportable 03/27/20 16:05 Clumped Platelets Not Reportable 03/27/20 16:05 Plt Clumps, EDTA Not Reportable 03/27/20 16:05 Large Platelets Not Reportable 03/27/20 16:05 Giant Platelets Not Reportable 03/27/20 16:05 Platelet Satelliting Not Reportable 03/27/20 16:05 Plt Morphology Comment Not Reportable 03/27/20 16:05 RBC Morphology Normal 03/27/20 16:05 Dimorphic RBCs Not Reportable 03/27/20 16:05 Polychromasia Not Reportable 03/27/20 16:05 Hypochromasia Not Reportable 03/27/20 16:05 Poikilocytosis Not Reportable 03/27/20 16:05 Anisocytosis Not Reportable 03/27/20 16:05 Microcytosis Not Reportable 03/27/20 16:05 Macrocytosis Not Reportable 03/27/20 16:05 Spherocytes Not Reportable 03/27/20 16:05 Pappenheimer Bodies Not Reportable 03/27/20 16:05 Sickle Cells Not Reportable 03/27/20 16:05 Target Cells Not Reportable 03/27/20 16:05 Tear Drop Cells Not Reportable 03/27/20 16:05 Ovalocytes Not Reportable 03/27/20 16:05 Helmet Cells Not Reportable 03/27/20 16:05 Christian-[place] Bodies Not Reportable 03/27/20 16:05 [place] Rings Not Reportable 03/27/20 16:05 [place] Cells Not Reportable 03/27/20 16:05 Bite Cells Not Reportable 03/27/20 16:05 Crenated Cell Not Reportable 03/27/20 16:05 Elliptocytes Not Reportable 03/27/20 16:05 Acanthocytes (Spur) Not Reportable 03/27/20 16:05 Rouleaux Not Reportable 03/27/20 16:05 Hemoglobin C Crystals Not Reportable 03/27/20 16:05 Schistocytes Not Reportable 03/27/20 16:05 Malaria parasites Not Reportable 03/27/20 16:05 Shane Bodies Not Reportable 03/27/20 16:05 Hem Pathologist Commnt No 03/27/20 16:05 Sodium 139 mmol/L (137-145) 03/31/20 04:33 Potassium 3.7 mmol/L (3.6-5.0) 03/31/20 04:33 Chloride 99.0 mmol/L (98-107) 03/31/20 04:33 Carbon Dioxide 25 mmol/L (22-30) D 03/31/20 04:33 Anion Gap 19 mmol/L 03/31/20 04:33 BUN 52 mg/dL (7-17) H 03/31/20 04:33 Creatinine 1.8 mg/dL (0.7-1.2) H 03/31/20 04:33 Estimated GFR 26 ml/min 03/31/20 04:33 BUN/Creatinine Ratio 29 % 03/31/20 04:33 Glucose 140 mg/dL (65-100) H 03/31/20 04:33 POC Glucose 292 (70-105) H 03/31/20 11:49 Hemoglobin A1c 5.7 % (4-6) 03/27/20 16:05 Calcium 7.9 mg/dL (8.4-10.2) L 03/31/20 04:33 Phosphorus 2.60 mg/dL (2.5-4.5) D 03/31/20 04:33 Magnesium 1.70 mg/dL (1.7-2.3) 03/29/20 07:43 Ferritin 86.6 ng/mL (13.0-400.0) 03/29/20 05:02 Total Bilirubin 0.20 mg/dL (0.1-1.2) 03/27/20 16:05 AST 15 units/L (5-40) 03/27/20 16:05 ALT 14 units/L (7-56) 03/27/20 16:05 Alkaline Phosphatase 56 units/L (35-129) 03/27/20 16:05 Total Creatine Kinase 136 units/L (30-135) H 03/28/20 11:18 Total Protein 6.2 g/dL (6.3-8.2) L 03/27/20 16:05 Albumin 3.6 g/dL (3.9-5) L 03/27/20 16:05 Albumin/Globulin Ratio 1.4 % 03/27/20 16:05 Vitamin B12 305.5 pg/mL (211-911) 03/29/20 05:02 Urine Color Yellow (Yellow) 03/27/20 16:47 Urine Turbidity Slightly-cloudy (Clear) 03/27/20 16:47 Urine pH 5.0 (5.0-7.0) 03/27/20 16:47 Ur Specific [place] 1.015 (1.003-1.030) 03/27/20 16:47 Urine Protein <15 mg/dl mg/dL (Negative) 03/27/20 16:47 Urine Glucose (UA) Neg mg/dL (Negative) 03/27/20 16:47 Urine Ketones Neg mg/dL (Negative) 03/27/20 16:47 Urine Blood Sm (Negative) 03/27/20 16:47 Urine Nitrite Neg (Negative) 03/27/20 16:47 Urine Bilirubin Neg (Negative) 03/27/20 16:47 Urine Urobilinogen < 2.0 mg/dL (<2.0) 03/27/20 16:47 Ur Leukocyte Esterase Neg (Negative) 03/27/20 16:47 Urine WBC (Auto) 1.0 /HPF (0.0-6.0) 03/27/20 16:47 Urine RBC (Auto) < 1.0 /HPF (0.0-6.0) 03/27/20 16:47 Urine Mucus Few /HPF 03/27/20 16:47 Steward/IV: Voiding Method Incontinent IV Catheter Type [Right Upper Peripheral IV arm] IV Catheter Type [Left Peripheral IV Antecubital] Active Medications - Current Medications Current Medications: Generic Name Dose Route Start Last Admin Trade Name Freq PRN Reason Stop Dose Admin Acetaminophen 650 mg 03/27/20 23:54 03/31/20 15:12 Tylenol PO 650 mg Q4H PRN Administration Pain, Mild (1-3) Alprazolam 0.5 mg 03/31/20 11:14 03/31/20 12:16 Xanax PO 0.5 mg Q8H PRN Administration Anxiety Dextrose 0 ml 03/27/20 22:54 D50w (25gm) Syringe IV Q30MIN PRN Hypoglycemia Protocol Haloperidol Lactate 1 mg 03/29/20 08:45 Haldol IM Q6H PRN Agitation Sodium Bicarbonate 75 meq/ 1,075 mls @ 75 mls/hr 03/28/20 21:00 03/31/20 05:45 Sodium Chloride IV 75 mls/hr DIRECT LUIS ALBERTO Administration Insulin Human Lispro 0 unit 03/30/20 22:00 03/31/20 12:44 Humalog SUB-Q 4 unit ACHS LUIS ALBEROT Administration Protocol Multivitamins/Minerals 1 each 03/29/20 10:00 03/31/20 09:36 Theragran-M Tab PO 1 each QDAY LUIS ALBERTO Administration Pantoprazole Sodium 40 mg 03/29/20 10:00 03/31/20 09:36 Protonix PO 40 mg QDAY LUIS ALBERTO Administration Nutrition/Malnutrition Assess - Dietary Evaluation Nutrition/Malnutrition Findings: Nutrition Notes Start: 03/28/20 13:27 Freq: Status: Active Protocol: Document 03/30/20 12:47 LM (Rec: 03/30/20 12:54 LM [email or web address]) Nutrition Notes Initial or Follow up Reassessment Current Diagnosis CKD(stage I-IV),Diabetes, Hypertension Other Pertinent Diagnosis FTT, dementia, frequent falls Current Diet consistent CHO/low sodium Labs/Tests BUN 49 Cr 1.8 BG 123 Pertinent Medications Reviewed Height 5 ft 4 in Weight 37.2 kg [place] Body Weight (kg) 54.54 BMI 14.1 Subjective/Other Information Pt stated she ate some of breakfast. Pt did not get ONS. 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 No Is Patient Ambulatory and/or Out of Bed No REE-([facility]-confined to bed) 946.500 Kcal/Kg value to use for calculation 40 Approximate Energy Requirements Using 1488 kcal/Kg Calculation Used for Recommendations Kcal/kg Additional Notes Protein: 30-56g (0.8-1.5g/kg) CKD and malnutrition Fluid: 1ml/kcal Nutrition Intervention Change Diet Order: continue Add Supplement/Snack (indicate name/kcal Glucerna BID /protein ) Provides kCal: 440 Provides Protein (gm) 20 Goal #1 meet at least 80% of energy and protein needs Anticipated Discharge Needs: cardiac/consistent CHO with ONS Follow-Up By: 04/02/20 Additional Comments F/U for PO/ONS tolerance
[2020-03-31] MEDS ORDERED: LORazepam 2 MG/ML VIAL IV PRN (15:48)
[2020-03-31] MEDS ORDERED: INSULIN NPH/REGULAR 70/30 INJ SUB-Q ONE (17:58)
[2020-03-31] MEDS: LORazepam 1 MG TAB PO PRN (21:43)
[2020-04-01] MEDS ORDERED: INSULIN NPH/REGULAR 70/30 INJ SUB-Q SCH (08:00)
[2020-04-01] MEDS: INSULIN LISPRO 100 UNIT/ML SUB-Q SCH ×4 (08:12→22:11)
[2020-04-01] MEDS: SODIUM BICARBONATE 75 MEQ in SODIUM CHLORIDE 0.45% 1000 ML 1,000 ML IV SCH ×2 (08:21→22:08)
[2020-04-01] MEDS: INSULIN NPH/REGULAR 70/30 INJ SUB-Q SCH ×2 (08:24→17:28)
[2020-04-01 09:33] LABS: Hematocrit 24.6 % (30.3-42.9); Mean Corpuscular HGB Conc 33 % (30-34); Mean Corpuscular Volume 106 fl (79-97); Platelet Count 187 K/mm3 (140-440); Red Blood Count 2.32 M/mm3 (3.65-5.03)
[2020-04-01] MEDS: MULTIVITAMINS,THER W-MINERALS TAB PO SCH (10:41)
[2020-04-01] MEDS: PANTOPRAZOLE 40 MG TAB PO SCH (10:41)
[2020-04-01] MEDS: LORazepam 1 MG TAB PO PRN (10:41)
--- NOTE | 2020-04-01 12:04 | Progress Note ---
Assessment and Plan Assessment and plan: --Severe malnutrition; BMI 14.2 Nutrition supplements, nutrition consult Supportive care --Patient has multiple abrasions on upper extremities due to recurrent falls Mild superficial skin infection, dressing in place We will add clindamycin, wound care, wound cultures --History of fall; fall precautions Physical therapy 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, for safety --Advanced age/dementia;; Supportive care --Heme positive stool; no evidence of hematemesis melena GI evaluation noted, no plans of endoscopy, cleared for discharge --Chronic anemia; H&H improved to 8.9 Due to malnutrition, poor oral intake Low hemoglobin at the time of admission probably due to hemodilution Advised ferrous sulfate, nutrition supplements --Acute versus acute on chronic kidney disease Due to vasomotor nephropathy, nephrology following Creatinine improving today to 1.8, nephro cleared --DVT prophylaxis; SCDs --Full CODE STATUS Patient is medically stable for discharge. DC planning per case management; placement Plan of care reviewed with the patient and her nurse History Interval history: Patient seen and examined at the bedside this afternoon Patient's chart and medications reviewed Has multiple superficial bruises due to history of recurrent falls Patient is pleasantly confused, not in acute distress Vital signs noted Hospitalist Physical - Constitutional Vitals: Temp Pulse Resp BP Pulse Ox 97.8 F 65 20 142/73 74 L 04/01/20 05:05 04/01/20 05:05 04/01/20 05:05 04/01/20 05:05 04/01/20 05:05 General appearance: Present: mild distress, cachectic, other (Confused, agitated, restraint for safety) - EENT Eyes: Present: PERRL, EOM intact - Neck Neck: Present: supple, normal ROM - Respiratory Respiratory effort: normal Respiratory: bilateral: diminished, negative: rales, rhonchi, wheezing - Cardiovascular Rhythm: regular Heart Sounds: Present: S1 & S2 - Extremities Extremities: no ischemia, No edema - Abdominal General gastrointestinal: soft, non-tender, non-distended, normal bowel sounds - Integumentary Integumentary: Present: clear, warm - Psychiatric Psychiatric: appropriate mood/affect, agitated, other (Confused, requiring restraints) - Neurologic Neurologic: moves all extremities Results - Labs CBC & Chem 7: 04/01/20 07:57 04/01/20 04:48 Labs: Laboratory Last Values WBC 12.8 K/mm3 (4.5-11.0) H 04/01/20 07:57 RBC 2.32 M/mm3 (3.65-5.03) L 04/01/20 07:57 Hgb 8.0 gm/dl (10.1-14.3) L 04/01/20 07:57 Hct 24.6 % (30.3-42.9) L 04/01/20 07:57 MCV 106 fl (79-97) H 04/01/20 07:57 MCH 34 pg (28-32) H 04/01/20 07:57 MCHC 33 % (30-34) 04/01/20 07:57 RDW 16.0 % (13.2-15.2) H 04/01/20 07:57 Plt Count 187 K/mm3 (140-440) 04/01/20 07:57 Lymph % (Auto) 3.6 % (13.4-35.0) L 03/31/20 04:33 [place] % (Auto) 6.8 % (0.0-7.3) 03/31/20 04:33 Eos % (Auto) 0.0 % (0.0-4.3) 03/31/20 04:33 Baso % (Auto) 0.3 % (0.0-1.8) 03/31/20 04:33 Lymph # 0.5 K/mm3 (1.2-5.4) L 03/31/20 04:33 [place] # 0.9 K/mm3 (0.0-0.8) H 03/31/20 04:33 Eos # 0.0 K/mm3 (0.0-0.4) 03/31/20 04:33 Baso # 0.0 K/mm3 (0.0-0.1) 03/31/20 04:33 Add Manual Diff Complete 03/27/20 16:05 Total Counted 100 03/27/20 16:05 Seg Neutrophils % Prepared Foods Team Leader 04/01/20 07:57 Seg Neuts % (Manual) 91.0 % (40.0-70.0) H 03/27/20 16:05 Band Neutrophils % 0 % 03/27/20 16:05 Lymphocytes % (Manual) 6.0 % (13.4-35.0) L 03/27/20 16:05 Reactive Lymphs % (Man) 0 % 03/27/20 16:05 Monocytes % (Manual) 3.0 % (0.0-7.3) 03/27/20 16:05 Eosinophils % (Manual) 0 % (0.0-4.3) 03/27/20 16:05 Basophils % (Manual) 0 % (0.0-1.8) 03/27/20 16:05 Metamyelocytes % 0 % 03/27/20 16:05 Myelocytes % 0 % 03/27/20 16:05 Promyelocytes % 0 % 03/27/20 16:05 Blast Cells % 0 % 03/27/20 16:05 Nucleated RBC % Not Reportable 03/27/20 16:05 Seg Neutrophils # 11.6 K/mm3 (1.8-7.7) H 03/31/20 04:33 Seg Neutrophils # Man 6.5 K/mm3 (1.8-7.7) 03/27/20 16:05 Band Neutrophils # 0.0 K/mm3 03/27/20 16:05 Lymphocytes # (Manual) 0.4 K/mm3 (1.2-5.4) L 03/27/20 16:05 Abs React Lymphs (Man) 0.0 K/mm3 03/27/20 16:05 Monocytes # (Manual) 0.2 K/mm3 (0.0-0.8) 03/27/20 16:05 Eosinophils # (Manual) 0.0 K/mm3 (0.0-0.4) 03/27/20 16:05 Basophils # (Manual) 0.0 K/mm3 (0.0-0.1) 03/27/20 16:05 Metamyelocytes # 0.0 K/mm3 03/27/20 16:05 Myelocytes # 0.0 K/mm3 03/27/20 16:05 Promyelocytes # 0.0 K/mm3 03/27/20 16:05 Blast Cells # 0.0 K/mm3 03/27/20 16:05 WBC Morphology Not Reportable 03/27/20 16:05 Hypersegmented Neuts Not Reportable 03/27/20 16:05 Hyposegmented Neuts Not Reportable 03/27/20 16:05 Hypogranular Neuts Not Reportable 03/27/20 16:05 Smudge Cells Not Reportable 03/27/20 16:05 Toxic Granulation Not Reportable 03/27/20 16:05 Toxic Vacuolation Not Reportable 03/27/20 16:05 Dohle Bodies Not Reportable 03/27/20 16:05 Pelger-Huet Anomaly Not Reportable 03/27/20 16:05 [place] Rods Not Reportable 03/27/20 16:05 Platelet Estimate Not Reportable 03/27/20 16:05 Clumped Platelets Not Reportable 03/27/20 16:05 Plt Clumps, EDTA Not Reportable 03/27/20 16:05 Large Platelets Not Reportable 03/27/20 16:05 Giant Platelets Not Reportable 03/27/20 16:05 Platelet Satelliting Not Reportable 03/27/20 16:05 Plt Morphology Comment Not Reportable 03/27/20 16:05 RBC Morphology Normal 03/27/20 16:05 Dimorphic RBCs Not Reportable 03/27/20 16:05 Polychromasia Not Reportable 03/27/20 16:05 Hypochromasia Not Reportable 03/27/20 16:05 Poikilocytosis Not Reportable 03/27/20 16:05 Anisocytosis Not Reportable 03/27/20 16:05 Microcytosis Not Reportable 03/27/20 16:05 Macrocytosis Not Reportable 03/27/20 16:05 Spherocytes Not Reportable 03/27/20 16:05 Pappenheimer Bodies Not Reportable 03/27/20 16:05 Sickle Cells Not Reportable 03/27/20 16:05 Target Cells Not Reportable 03/27/20 16:05 Tear Drop Cells Not Reportable 03/27/20 16:05 Ovalocytes Not Reportable 03/27/20 16:05 Helmet Cells Not Reportable 03/27/20 16:05 Christian-[place] Bodies Not Reportable 03/27/20 16:05 [place] Rings Not Reportable 03/27/20 16:05 [place] Cells Not Reportable 03/27/20 16:05 Bite Cells Not Reportable 03/27/20 16:05 Crenated Cell Not Reportable 03/27/20 16:05 Elliptocytes Not Reportable 03/27/20 16:05 Acanthocytes (Spur) Not Reportable 03/27/20 16:05 Rouleaux Not Reportable 03/27/20 16:05 Hemoglobin C Crystals Not Reportable 03/27/20 16:05 Schistocytes Not Reportable 03/27/20 16:05 Malaria parasites Not Reportable 03/27/20 16:05 Shane Bodies Not Reportable 03/27/20 16:05 Hem Pathologist Commnt No 03/27/20 16:05 Sodium 137 mmol/L (137-145) 04/01/20 04:48 Potassium 3.7 mmol/L (3.6-5.0) 04/01/20 04:48 Chloride 94.3 mmol/L (98-107) L 04/01/20 04:48 Carbon Dioxide 27 mmol/L (22-30) 04/01/20 04:48 Anion Gap 19 mmol/L 04/01/20 04:48 BUN 52 mg/dL (7-17) H 04/01/20 04:48 Creatinine 1.7 mg/dL (0.7-1.2) H 04/01/20 04:48 Estimated GFR 28 ml/min 04/01/20 04:48 BUN/Creatinine Ratio 31 % 04/01/20 04:48 Glucose 106 mg/dL (65-100) H 04/01/20 04:48 POC Glucose 131 (70-105) H 04/01/20 11:31 Hemoglobin A1c 5.7 % (4-6) 03/27/20 16:05 Calcium 8.0 mg/dL (8.4-10.2) L 04/01/20 04:48 Phosphorus 1.90 mg/dL (2.5-4.5) L D 04/01/20 04:48 Magnesium 1.50 mg/dL (1.7-2.3) L 04/01/20 08:33 Ferritin 86.6 ng/mL (13.0-400.0) 03/29/20 05:02 Total Bilirubin 0.20 mg/dL (0.1-1.2) 03/27/20 16:05 AST 15 units/L (5-40) 03/27/20 16:05 ALT 14 units/L (7-56) 03/27/20 16:05 Alkaline Phosphatase 56 units/L (35-129) 03/27/20 16:05 Total Creatine Kinase 136 units/L (30-135) H 03/28/20 11:18 Total Protein 6.2 g/dL (6.3-8.2) L 03/27/20 16:05 Albumin 3.6 g/dL (3.9-5) L 03/27/20 16:05 Albumin/Globulin Ratio 1.4 % 03/27/20 16:05 Vitamin B12 305.5 pg/mL (211-911) 03/29/20 05:02 Urine Color Yellow (Yellow) 03/27/20 16:47 Urine Turbidity Slightly-cloudy (Clear) 03/27/20 16:47 Urine pH 5.0 (5.0-7.0) 03/27/20 16:47 Ur Specific [place] 1.015 (1.003-1.030) 03/27/20 16:47 Urine Protein <15 mg/dl mg/dL (Negative) 03/27/20 16:47 Urine Glucose (UA) Neg mg/dL (Negative) 03/27/20 16:47 Urine Ketones Neg mg/dL (Negative) 03/27/20 16:47 Urine Blood Sm (Negative) 03/27/20 16:47 Urine Nitrite Neg (Negative) 03/27/20 16:47 Urine Bilirubin Neg (Negative) 03/27/20 16:47 Urine Urobilinogen < 2.0 mg/dL (<2.0) 03/27/20 16:47 Ur Leukocyte Esterase Neg (Negative) 03/27/20 16:47 Urine WBC (Auto) 1.0 /HPF (0.0-6.0) 03/27/20 16:47 Urine RBC (Auto) < 1.0 /HPF (0.0-6.0) 03/27/20 16:47 Urine Mucus Few /HPF 03/27/20 16:47 Steward/IV: Voiding Method Diaper IV Catheter Type [Right Upper Peripheral IV arm] IV Catheter Type [Left Peripheral IV Antecubital] Active Medications - Current Medications Current Medications: Generic Name Dose Route Start Last Admin Trade Name Freq PRN Reason Stop Dose Admin Acetaminophen 650 mg 03/27/20 23:54 03/31/20 15:12 Tylenol PO 650 mg Q4H PRN Administration Pain, Mild (1-3) Al Hydrox/Mg Hydrox/Simethicone 15 ml 03/31/20 15:47 Alum-Mag Hydrox-Simeth [id number]/5ml PO Q4H PRN Indigestion Alprazolam 0.5 mg 03/31/20 11:14 03/31/20 12:16 Xanax PO 0.5 mg Q8H PRN Administration Anxiety Dextrose 0 ml 03/27/20 22:54 D50w (25gm) Syringe IV Q30MIN PRN Hypoglycemia Protocol Sodium Bicarbonate 75 meq/ 1,075 mls @ 75 mls/hr 03/28/20 21:00 04/01/20 08:21 Sodium Chloride IV 75 mls/hr DIRECT LUIS ALBERTO Administration Insulin Human Isoph/Insulin Regular 8 unit 04/01/20 08:00 04/01/20 08:24 Humulin 70/30 SUB-Q 8 unit BIDDIAB LUIS ALBERTO Administration Insulin Human Lispro 0 unit 03/30/20 22:00 04/01/20 08:12 Humalog SUB-Q Not Given ACHS LUIS ALBERTO Protocol Lorazepam 1 mg 03/31/20 16:36 04/01/20 10:41 Ativan PO 1 mg BID PRN Administration Agitation Multivitamins/Minerals 1 each 03/29/20 10:00 04/01/20 10:41 Theragran-M Tab PO 1 each QDAY LUIS ALBERTO Administration Pantoprazole Sodium 40 mg 03/29/20 10:00 04/01/20 10:41 Protonix PO 40 mg QDAY LUIS ALBERTO Administration Nutrition/Malnutrition Assess - Dietary Evaluation Nutrition/Malnutrition Findings: Nutrition Notes Start: 03/28/20 13:27 Freq: Status: Active Protocol: Document 03/30/20 12:47 LM (Rec: 03/30/20 12:54 LM [email or web address]) Nutrition Notes Initial or Follow up Reassessment Current Diagnosis CKD(stage I-IV),Diabetes, Hypertension Other Pertinent Diagnosis FTT, dementia, frequent falls Current Diet consistent CHO/low sodium Labs/Tests BUN 49 Cr 1.8 BG 123 Pertinent Medications Reviewed Height 5 ft 4 in Weight 37.2 kg [place] Body Weight (kg) 54.54 BMI 14.1 Subjective/Other Information Pt stated she ate some of breakfast. Pt did not get ONS. Burn Absent Trauma Absent GI Symptoms None Current % PO Poor (25-49%) Minimum of two criteria Yes Muscle Mass Mild Depletion (non-severe) Reduced Coat Room Attendant Strength N/A (non-severe) #1 Nutrition Diagnosis Malnutrition Diagnosis Progress(for reassessment Continues documentation) Is patient on ventilator? No Is Patient Ambulatory and/or Out of Bed No REE-([place]-confined to bed) 946.500 Kcal/Kg value to use for calculation 40 Approximate Energy Requirements Using 1488 kcal/Kg Calculation Used for Recommendations Kcal/kg Additional Notes Protein: 30-56g (0.8-1.5g/kg) CKD and malnutrition Fluid: 1ml/kcal Nutrition Intervention Change Diet Order: continue Add Supplement/Snack (indicate name/kcal Glucerna BID /protein ) Provides kCal: 440 Provides Protein (gm) 20 Goal #1 meet at least 80% of energy and protein needs Anticipated Discharge Needs: cardiac/consistent CHO with ONS Follow-Up By: 04/02/20 Additional Comments F/U for PO/ONS tolerance
[2020-04-01 12:53] LABS: Total Cells Counted 100
[2020-04-01 12:54] LABS: Anisocytosis 1+; Band Neutrophils # (Manual) 0.3 K/mm3; Basophils % (Manual) 0 % (0.0-1.8); Eosinophils % (Manual) 0 % (0.0-4.3); Macrocytosis 1+; Platelet Estimate Consistent w Auto
[2020-04-01] MEDS: CLINDAMYCIN 300 MG CAP PO SCH ×2 (17:25→21:25)
[2020-04-01] MEDS: PHOS-NAK POWDER PACKET PO SCH (21:25)
[2020-04-02] MEDS: PHOS-NAK POWDER PACKET PO SCH ×3 (06:49→21:37)
[2020-04-02] MEDS: amLODIPine 5 MG TAB PO SCH (09:16)
[2020-04-02] MEDS: MULTIVITAMINS,THER W-MINERALS TAB PO SCH (09:16)
[2020-04-02] MEDS: CLINDAMYCIN 300 MG CAP PO SCH ×4 (09:16→21:37)
[2020-04-02] MEDS: LORazepam 1 MG TAB PO PRN ×2 (09:16→21:37)
[2020-04-02] MEDS: PANTOPRAZOLE 40 MG TAB PO SCH (09:16)
[2020-04-02] MEDS: SODIUM BICARBONATE 75 MEQ in SODIUM CHLORIDE 0.45% 1000 ML 1,000 ML IV SCH (09:17)
[2020-04-02] MEDS: INSULIN LISPRO 100 UNIT/ML SUB-Q SCH ×4 (09:17→21:37)
[2020-04-02] MEDS: INSULIN NPH/REGULAR 70/30 INJ SUB-Q SCH ×2 (09:18→17:59)
[2020-04-02 10:03] LABS: Hematocrit 23.6 % (30.3-42.9); Hemoglobin 7.5 gm/dl (10.1-14.3); Mean Corpuscular HGB Conc 32 % (30-34); Mean Corpuscular Volume 107 fl (79-97); Platelet Count 196 K/mm3 (140-440); Red Blood Count 2.21 M/mm3 (3.65-5.03); Red Cell Distribution Width 16.1 % (13.2-15.2)
[2020-04-02 10:22] LABS: Calcium 7.6 mg/dL (8.4-10.2)
--- NOTE | 2020-04-02 11:05 | Progress Note ---
Assessment and Plan Assessment and plan: COVID test negative Second COVID test tomorrow Required for SNF placement --Severe hypokalemia;K 2.7 Replaced with KCl 40 mEq every 3 hours x2 Check magnesium, monitor electrolytes --Severe malnutrition; BMI 14.2 Nutrition supplements, nutrition consult Supportive care --Cellulitis superficial' abrasions on upper extremities due to recurrent falls Mild superficial skin infection, dressing in place We will add clindamycin, wound care, wound cultures --History of recurrent falls; fall precautions Physical therapy 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, for safety --Advanced age/dementia;; Supportive care --Heme positive stool; no evidence of hematemesis melena GI evaluated no plans of endoscopy, cleared for discharge --Chronic anemia; low stable H&H Due to malnutrition, poor oral intake Low hemoglobin at the time of admission probably due to hemodilution Advised ferrous sulfate, nutrition supplements --Acute versus acute on chronic kidney disease Due to vasomotor nephropathy, nephrology following Creatinine improving today to 1.8, nephro cleared --DVT prophylaxis; SCDs --Full CODE STATUS Patient is medically stable for discharge. DC planning SNF placement tomorrow . Plan of care reviewed with the patient and her nurse History Interval history: Patient seen and examined at the bedside patient's chart and medications reviewed Patient's potassium is 2.7, comfortable no new complaints Elderly frail lady, confused at times, not in acute distress Vital signs noted Hospitalist Physical - Constitutional Vitals: Temp Pulse Resp BP Pulse Ox 97.2 F L 86 18 165/54 92 04/02/20 05:07 04/02/20 05:07 04/02/20 05:07 04/02/20 05:07 04/02/20 05:07 General appearance: Present: no acute distress, cachectic, other (Confused, agitated, restraint for safety) - EENT Eyes: Present: PERRL, EOM intact - Neck Neck: Present: supple, normal ROM - Respiratory Respiratory effort: normal Respiratory: bilateral: diminished, negative: rales, rhonchi, wheezing - Cardiovascular Rhythm: regular Heart Sounds: Present: S1 & S2 - Extremities Extremities: no ischemia, abnormal (Dressing in place) Extremity abnormal: other (Chronic skin changes) - Abdominal General gastrointestinal: soft, non-tender, non-distended - Integumentary Integumentary: Present: dry (Chronic skin changes) - Psychiatric Psychiatric: cooperative, other (Confused at times) - Neurologic Neurologic: moves all extremities Results - Labs CBC & Chem 7: 04/02/20 09:26 04/02/20 09:26 Labs: Laboratory Last Values WBC 15.9 K/mm3 (4.5-11.0) H 04/02/20 09:26 RBC 2.21 M/mm3 (3.65-5.03) L 04/02/20 09:26 Hgb 7.5 gm/dl (10.1-14.3) L 04/02/20 09:26 Hct 23.6 % (30.3-42.9) L 04/02/20 09:26 MCV 107 fl (79-97) H 04/02/20 09:26 MCH 34 pg (28-32) H 04/02/20 09:26 MCHC 32 % (30-34) 04/02/20 09:26 RDW 16.1 % (13.2-15.2) H 04/02/20 09:26 Plt Count 196 K/mm3 (140-440) 04/02/20 09:26 Lymph % (Auto) 3.6 % (13.4-35.0) L 03/31/20 04:33 [place] % (Auto) 6.8 % (0.0-7.3) 03/31/20 04:33 Eos % (Auto) 0.0 % (0.0-4.3) 03/31/20 04:33 Baso % (Auto) 0.3 % (0.0-1.8) 03/31/20 04:33 Lymph # 0.5 K/mm3 (1.2-5.4) L 03/31/20 04:33 [place] # 0.9 K/mm3 (0.0-0.8) H 03/31/20 04:33 Eos # 0.0 K/mm3 (0.0-0.4) 03/31/20 04:33 Baso # 0.0 K/mm3 (0.0-0.1) 03/31/20 04:33 Add Manual Diff Complete 04/01/20 07:57 Total Counted 100 04/01/20 07:57 Seg Neutrophils % Community Health Outreach Worker 04/02/20 09:26 Seg Neuts % (Manual) 92.0 % (40.0-70.0) H 04/01/20 07:57 Band Neutrophils % 2.0 % 04/01/20 07:57 Lymphocytes % (Manual) 2.0 % (13.4-35.0) L 04/01/20 07:57 Reactive Lymphs % (Man) 0 % 04/01/20 07:57 Monocytes % (Manual) 4.0 % (0.0-7.3) 04/01/20 07:57 Eosinophils % (Manual) 0 % (0.0-4.3) 04/01/20 07:57 Basophils % (Manual) 0 % (0.0-1.8) 04/01/20 07:57 Metamyelocytes % 0 % 04/01/20 07:57 Myelocytes % 0 % 04/01/20 07:57 Promyelocytes % 0 % 04/01/20 07:57 Blast Cells % 0 % 04/01/20 07:57 Nucleated RBC % Not Reportable 04/01/20 07:57 Seg Neutrophils # 11.6 K/mm3 (1.8-7.7) H 03/31/20 04:33 Seg Neutrophils # Man 11.8 K/mm3 (1.8-7.7) H 04/01/20 07:57 Band Neutrophils # 0.3 K/mm3 04/01/20 07:57 Lymphocytes # (Manual) 0.3 K/mm3 (1.2-5.4) L 04/01/20 07:57 Abs React Lymphs (Man) 0.0 K/mm3 04/01/20 07:57 Monocytes # (Manual) 0.5 K/mm3 (0.0-0.8) 04/01/20 07:57 Eosinophils # (Manual) 0.0 K/mm3 (0.0-0.4) 04/01/20 07:57 Basophils # (Manual) 0.0 K/mm3 (0.0-0.1) 04/01/20 07:57 Metamyelocytes # 0.0 K/mm3 04/01/20 07:57 Myelocytes # 0.0 K/mm3 04/01/20 07:57 Promyelocytes # 0.0 K/mm3 04/01/20 07:57 Blast Cells # 0.0 K/mm3 04/01/20 07:57 WBC Morphology Not Reportable 04/01/20 07:57 Hypersegmented Neuts Not Reportable 04/01/20 07:57 Hyposegmented Neuts Not Reportable 04/01/20 07:57 Hypogranular Neuts Not Reportable 04/01/20 07:57 Smudge Cells Not Reportable 04/01/20 07:57 Toxic Granulation Not Reportable 04/01/20 07:57 Toxic Vacuolation Not Reportable 04/01/20 07:57 Dohle Bodies Not Reportable 04/01/20 07:57 Pelger-Huet Anomaly Not Reportable 04/01/20 07:57 Palak Rods Not Reportable 04/01/20 07:57 Platelet Estimate Consistent w auto 04/01/20 07:57 Clumped Platelets Not Reportable 04/01/20 07:57 Plt Clumps, EDTA Not Reportable 04/01/20 07:57 Large Platelets Not Reportable 04/01/20 07:57 Giant Platelets Not Reportable 04/01/20 07:57 Platelet Satelliting Not Reportable 04/01/20 07:57 Plt Morphology Comment Not Reportable 04/01/20 07:57 RBC Morphology Not Reportable 04/01/20 07:57 Dimorphic RBCs Not Reportable 04/01/20 07:57 Polychromasia Not Reportable 04/01/20 07:57 Hypochromasia Not Reportable 04/01/20 07:57 Poikilocytosis Not Reportable 04/01/20 07:57 Anisocytosis 1+ 04/01/20 07:57 Microcytosis Not Reportable 04/01/20 07:57 Macrocytosis 1+ 04/01/20 07:57 Spherocytes Not Reportable 04/01/20 07:57 Pappenheimer Bodies Not Reportable 04/01/20 07:57 Sickle Cells Not Reportable 04/01/20 07:57 Target Cells Not Reportable 04/01/20 07:57 Tear Drop Cells Not Reportable 04/01/20 07:57 Ovalocytes Not Reportable 04/01/20 07:57 Helmet Cells Not Reportable 04/01/20 07:57 [place] Bodies Not Reportable 04/01/20 07:57 [place] Rings Not Reportable 04/01/20 07:57 [place] Cells Not Reportable 04/01/20 07:57 Bite Cells Not Reportable 04/01/20 07:57 Crenated Cell Not Reportable 04/01/20 07:57 Elliptocytes Not Reportable 04/01/20 07:57 Acanthocytes (Spur) Not Reportable 04/01/20 07:57 Rouleaux Not Reportable 04/01/20 07:57 Hemoglobin C Crystals Not Reportable 04/01/20 07:57 Schistocytes Not Reportable 04/01/20 07:57 Malaria parasites Not Reportable 04/01/20 07:57 [place] Bodies Not Reportable 04/01/20 07:57 Hem Pathologist Commnt No 04/01/20 07:57 Sodium 135 mmol/L (137-145) L 04/02/20 09:26 Potassium 2.7 mmol/L (3.6-5.0) L* D 04/02/20 09:26 Chloride 94.1 mmol/L (98-107) L 04/02/20 09:26 Carbon Dioxide 25 mmol/L (22-30) 04/02/20 09:26 Anion Gap 19 mmol/L 04/02/20 09:26 BUN 46 mg/dL (7-17) H 04/02/20 09:26 Creatinine 1.6 mg/dL (0.7-1.2) H 04/02/20 09:26 Estimated GFR 30 ml/min 04/02/20 09:26 BUN/Creatinine Ratio 29 % 04/02/20 09:26 Glucose 291 mg/dL (65-100) H 04/02/20 09:26 POC Glucose 196 (70-105) H 04/02/20 07:48 Hemoglobin A1c 5.7 % (4-6) 03/27/20 16:05 Calcium 7.6 mg/dL (8.4-10.2) L 04/02/20 09:26 Phosphorus 3.20 mg/dL (2.5-4.5) D 04/02/20 09:26 Magnesium 1.50 mg/dL (1.7-2.3) L 04/01/20 08:33 Ferritin 86.6 ng/mL (13.0-400.0) 03/29/20 05:02 Total Bilirubin 0.20 mg/dL (0.1-1.2) 03/27/20 16:05 AST 15 units/L (5-40) 03/27/20 16:05 ALT 14 units/L (7-56) 03/27/20 16:05 Alkaline Phosphatase 56 units/L (35-129) 03/27/20 16:05 Total Creatine Kinase 136 units/L (30-135) H 03/28/20 11:18 Total Protein 6.2 g/dL (6.3-8.2) L 03/27/20 16:05 Albumin 3.6 g/dL (3.9-5) L 03/27/20 16:05 Albumin/Globulin Ratio 1.4 % 03/27/20 16:05 Vitamin B12 305.5 pg/mL (211-911) 03/29/20 05:02 Urine Color Yellow (Yellow) 03/27/20 16:47 Urine Turbidity Slightly-cloudy (Clear) 03/27/20 16:47 Urine pH 5.0 (5.0-7.0) 03/27/20 16:47 Ur Specific [place] 1.015 (1.003-1.030) 03/27/20 16:47 Urine Protein <15 mg/dl mg/dL (Negative) 03/27/20 16:47 Urine Glucose (UA) Neg mg/dL (Negative) 03/27/20 16:47 Urine Ketones Neg mg/dL (Negative) 03/27/20 16:47 Urine Blood Sm (Negative) 03/27/20 16:47 Urine Nitrite Neg (Negative) 03/27/20 16:47 Urine Bilirubin Neg (Negative) 03/27/20 16:47 Urine Urobilinogen < 2.0 mg/dL (<2.0) 03/27/20 16:47 Ur Leukocyte Esterase Neg (Negative) 03/27/20 16:47 Urine WBC (Auto) 1.0 /HPF (0.0-6.0) 03/27/20 16:47 Urine RBC (Auto) < 1.0 /HPF (0.0-6.0) 03/27/20 16:47 Urine Mucus Few /HPF 03/27/20 16:47 Steward/IV: Voiding Method Diaper IV Catheter Type [Right Upper Peripheral IV arm] IV Catheter Type [Left Peripheral IV Antecubital] Active Medications - Current Medications Current Medications: Generic Name Dose Route Start Last Admin Trade Name Freq PRN Reason Stop Dose Admin Acetaminophen 650 mg 03/27/20 23:54 03/31/20 15:12 Tylenol PO 650 mg Q4H PRN Administration Pain, Mild (1-3) Al Hydrox/Mg Hydrox/Simethicone 15 ml 03/31/20 15:47 Alum-Mag Hydrox-Simeth 055-870-81rx/5ml PO Q4H PRN Indigestion Alprazolam 0.5 mg 03/31/20 11:14 03/31/20 12:16 Xanax PO 0.5 mg Q8H PRN Administration Anxiety Amlodipine Besylate 5 mg 04/02/20 10:00 04/02/20 09:16 Amlodipine PO 5 mg DAILY LUIS ALBERTO Administration Clindamycin HCl 300 mg 04/01/20 18:00 04/02/20 09:16 Cleocin PO 300 mg QID LUIS ALBERTO Administration Dextrose 0 ml 03/27/20 22:54 D50w (25gm) Syringe IV Q30MIN PRN Hypoglycemia Protocol Sodium Bicarbonate 75 meq/ 1,075 mls @ 75 mls/hr 03/28/20 21:00 04/02/20 09:17 Sodium Chloride IV 75 mls/hr DIRECT LUIS ALBERTO Administration Insulin Human Isoph/Insulin Regular 8 unit 04/01/20 08:00 04/02/20 09:18 Humulin 70/30 SUB-Q 8 unit BIDDIAB LUIS ALBERTO Administration Insulin Human Lispro 0 unit 03/30/20 22:00 04/02/20 09:17 Humalog SUB-Q 2 unit ACHS LUIS ALBERTO Administration Protocol Lorazepam 1 mg 03/31/20 16:36 04/02/20 09:16 Ativan PO 1 mg BID PRN Administration Agitation Multivitamins/Minerals 1 each 03/29/20 10:00 04/02/20 09:16 Theragran-M Tab PO 1 each QDAY LUIS ALBERTO Administration Pantoprazole Sodium 40 mg 03/29/20 10:00 04/02/20 09:16 Protonix PO 40 mg QDAY LUIS ALBERTO Administration Potassium Chloride 40 meq 04/02/20 11:00 K-Dur PO 04/02/20 14:01 Q3H LUIS ALBERTO Potassium Phos/Sodium Phos 1 each 04/01/20 22:00 04/02/20 06:49 Phos-Nak PO 1 each Q8HR LUIS ALBERTO Administration Nutrition/Malnutrition Assess - Dietary Evaluation Nutrition/Malnutrition Findings: Nutrition Notes Start: 03/28/20 13:27 Freq: Status: Active Protocol: Document 04/02/20 09:56 LP (Rec: 04/02/20 10:00 LP [id number]) Nutrition Notes Initial or Follow up Reassessment Current Diagnosis CKD(stage I-IV),Diabetes, Hypertension Other Pertinent Diagnosis FTT, dementia, frequent falls Current Diet consistent CHO/cardiac Labs/Tests Reviewed Pertinent Medications Reviewed Height 5 ft 4 in Weight 40.3 kg [place] Body Weight (kg) 54.54 BMI 15.2 Weight change and time frame Wt change noted Weight Status Underweight Subjective/Other Information Pt noted with 50-75% of meals consumed. Unsure if consuming supplement. Percent of energy/protein needs met: 66%/100% Burn Absent Trauma Absent Current % PO Fair (50-74%) Minimum of two criteria Yes Muscle Mass Mild Depletion (non-severe) Reduced Nonprofit Financial Controller Strength N/A (non-severe) #1 Nutrition Diagnosis Malnutrition Diagnosis Progress(for reassessment Continues documentation) Is patient on ventilator? No Is Patient Ambulatory and/or Out of Bed No REE-([facility]-confined to bed) 983.664 Kcal/Kg value to use for calculation 40 Approximate Energy Requirements Using 1612 kcal/Kg Calculation Used for Recommendations Kcal/kg Additional Notes Protein: 30-56g (0.8-1.5g/kg) CKD and malnutrition Fluid: 1ml/kcal Nutrition Intervention Change Diet Order: continue Add Supplement/Snack (indicate name/kcal Glucerna BID /protein ) Provides kCal: 440 Provides Protein (gm) 20 Goal #1 meet at least 80% of energy and protein needs Anticipated Discharge Needs: cardiac/consistent CHO with ONS Follow-Up By: 04/04/20 Additional Comments Follow for intakes, ONS
[2020-04-02 12:07] LABS: Band Neutrophils # (Manual) 0.3 K/mm3; Basophils % (Manual) 0 % (0.0-1.8); Eosinophils % (Manual) 0 % (0.0-4.3); Total Cells Counted 100
[2020-04-02 12:09] LABS: Anisocytosis 1+; Hypochromasia 1+; Macrocytosis Few; Platelet Clumps Few; Platelet Estimate Consistent w Auto
[2020-04-02] MEDS: POTASSIUM CHLORIDE ER 20 MEQ TAB PO SCH ×2 (12:18→14:40)
[2020-04-02] MEDS: SODIUM CHLORIDE 0.45% 1000 ML 1,000 ML IV SCH (12:19)
[2020-04-02] MEDS: ACETAMINOPHEN 325 MG TAB PO PRN ×2 (14:39→17:55)
[2020-04-02 22:57] LABS: Albumin 3.3 g/dL (3.8-4.8); Gamma Globulin 0.6 g/dL (0.8-1.7)
[2020-04-03] MEDS: SODIUM CHLORIDE 0.45% 1000 ML 1,000 ML IV SCH (02:05)
[2020-04-03] MEDS: ACETAMINOPHEN 325 MG TAB PO PRN ×2 (03:58→10:04)
[2020-04-03] MEDS: ALPRAZolam 0.5 MG TAB PO PRN (03:58)
[2020-04-03 05:33] LABS: Basophils % (Auto) 0.1 % (0.0-1.8); Eosinophils # (Auto) 0.1 K/mm3 (0.0-0.4); Eosinophils % (Auto) 0.6 % (0.0-4.3); Hematocrit 20.8 % (30.3-42.9); Hemoglobin 6.8 gm/dl (10.1-14.3); Lymphocytes # (Auto) 0.4 K/mm3 (1.2-5.4); Lymphocytes % (Auto) 3.3 % (13.4-35.0); Mean Corpuscular HGB Conc 33 % (30-34); Mean Corpuscular Volume 105 fl (79-97); Monocytes # (Auto) 0.8 K/mm3 (0.0-0.8); Monocytes % (Auto) 7.4 % (0.0-7.3); Platelet Count 167 K/mm3 (140-440); Red Blood Count 1.98 M/mm3 (3.65-5.03); Red Cell Distribution Width 15.7 % (13.2-15.2)
[2020-04-03 05:49] LABS: Calcium 6.9 mg/dL (8.4-10.2)
[2020-04-03] MEDS: PHOS-NAK POWDER PACKET PO SCH ×2 (06:29→13:08)
[2020-04-03] MEDS: INSULIN LISPRO 100 UNIT/ML SUB-Q SCH ×2 (08:52→12:17)
[2020-04-03] MEDS: INSULIN NPH/REGULAR 70/30 INJ SUB-Q SCH (08:52)
[2020-04-03] MEDS: MULTIVITAMINS,THER W-MINERALS TAB PO SCH (10:04)
[2020-04-03] MEDS: CLINDAMYCIN 300 MG CAP PO SCH ×2 (10:04→13:08)
[2020-04-03] MEDS: amLODIPine 5 MG TAB PO SCH (10:04)
[2020-04-03] MEDS: PANTOPRAZOLE 40 MG TAB PO SCH (10:04)
[2020-04-03 12:22] VITALS: BP 140/65
--- NOTE | 2020-04-03 14:15 | Discharge Summary ---
Providers - Providers Date of Admission: 03/27/20 21:32 Date of discharge: 04/03/20 Attending physician: AMI OQUENDO 03/28/20 06:00 Consult to Case Management [CONS] Routine Services Needed at Discharge: Advanced Manufacturing Engineer Notified:: cm notified Additional Physician Instructions: NEED FOR PLACEMENT Consult to Physician [CONS] Routine Comment: Consulting Provider: HAL MESA Physician Instructions: Reason For Exam: HEME OCCULOT Consult to Physician [CONS] Routine Comment: Consulting Provider: CALIXTO CENTENO Physician Instructions: Reason For Exam: CKD 03/28/20 10:00 Consult to Dietitian/Nutrition [CONS] Routine Physician Instructions: Reason For Exam: Reason for Consult: Malnutrition 03/28/20 11:00 Consult to Wound/ET Nurse [CONS] Routine Reason For Exam: re consult RIGHT ARM WORSEN 03/29/20 12:47 Physical Therapy Evaluation and Treat [CONS] Routine Comment: Reason For Exam: gen debility /dc needs Primary care physician: ENROLLMENT PROCESSOR Hospitalization Reason for admission: Failure to thrive/frequent falls Condition: Stable Pertinent studies: CT head Cervical CT spine Renal ultrasound Hospital course: Very pleasant 89-year-old frail female patient with significant past medical history of anxiety dementia hypertension, diabetes, chronic kidney disease was admitted through emergency room with history of failure to thrive, frequent falls and unable to care for self as she lives alone. Patient was admitted noted to have multiple superficial abrasions,Severe confusion, symptomatically managed, received wound care, antibiotics clindamycin, case management has evaluated the patient And set up SNF placement. Today patient is comfortable no new complaints Pleasantly confused brief history hemodynamically and clinically stable at discharge Discharge diagnosis : COVID test negative --Severe hypokalemia;K 2.7 Replaced with KCl, normal levels today --Hypomagnesemia/hypophosphatemia; On Mag-Ox, Neutra-Phos for total 5 to 7 days --Severe malnutrition; BMI 14.2 Nutrition supplements --Cellulitis superficial' abrasions on upper extremities due to recurrent falls Significantly improved, on oral clindamycin, to continue next 5 to 7 days --History of recurrent falls; fall precautions Physical therapy occupational therapy evaluated --Advanced age/dementia;; Supportive care --Heme positive stool; GI evaluated, no evidence of GI bleeding If patient has recurrent symptoms may see GI as outpatient --Chronic anemia; low stable H&H Due to malnutrition, poor oral intake Oral ferrous sulfate, check hemoglobin after 2 3 months --Acute versus acute on chronic kidney disease Due to vasomotor nephropathy, nephrology following Creatinine improving today to 1.5, nephro cleared --DVT prophylaxis; SCDs --Full CODE STATUS Stable at discharge Disposition: DC/[place]-03 SNF [facility] Time spent for discharge: 35 min Core Measure Documentation - Palliative Care Palliative Care/ Comfort Measures: Not Applicable - Core Measures Any of the following diagnoses?: none Exam - Constitutional Vitals: Temp Pulse Resp BP Pulse Ox 97.8 F 94 H 18 140/65 98 04/03/20 11:42 04/03/20 11:42 04/03/20 11:42 04/03/20 11:42 04/03/20 11:42 General appearance: Present: no acute distress, well-nourished - EENT Eyes: Present: PERRL, EOM intact - Neck Neck: Present: supple, normal ROM - Respiratory Respiratory effort: normal Respiratory: bilateral: diminished, negative: rales, rhonchi, wheezing - Cardiovascular Rhythm: regular Heart Sounds: Present: S1 & S2 - Extremities Extremities: no ischemia, No edema - Abdominal General gastrointestinal: Present: soft, non-tender, non-distended, normal bowel sounds - Integumentary Integumentary: Present: clear, warm - Musculoskeletal Musculoskeletal: generalized weakness - Psychiatric Psychiatric: other (Confused) - Neurologic Neurologic: moves all extremities Plan Activity: advance as tolerated, fall precautions Diet: diabetic, other (Mechanical soft diet advance as tolerated) Special Instructions: physical therapy Additional Instructions: Fall precautions. Wound care. Patient needs close supervision because of confusion risk of falls Follow up with: PRIMARY MD KORY [Primary Care Provider] - 7 Days DINESH LE MD [Staff Physician] - 14 Days Prescriptions: LORazepam [Ativan] 1 mg PO BID PRN #14 PRN Reason: Agitation ALPRAZolam [Xanax TAB] 0.5 mg PO Q8H PRN #20 tablet PRN Reason: Anxiety
[2020-04-03] MEDS ORDERED: FERROUS SULFATE 325 MG TAB PO SCH (22:00)
[2020-04-04] MEDS ORDERED: MAGNESIUM OXIDE 400 MG TAB PO SCH (10:00)
== END 2020-04-03 16:23 | DRG 604 ==
LOC: ED 14:37 → 3A 21:32
PROVIDERS: ADMIT Internal Medicine; ATTEND Internal Medicine
DX: S60.511A Abrasion of right hand, initial encounter (principal); N17.0 Acute kidney failure with tubular necrosis; E43 Unspecified severe protein-calorie malnutrition; E87.2 Acidosis; Z68.1 Body mass index [BMI] 19.9 or less, adult; I13.0 Hypertensive heart and chronic kidney disease with heart failure and stage 1 through stage 4 chronic kidney disease, or unspecified chronic kidney disease; L03.119 Cellulitis of unspecified part of limb; D64.9 Anemia, unspecified; F03.90 Unspecified dementia, unspecified severity, without behavioral disturbance, psychotic disturbance, mood disturbance, and anxiety; R19.5 Other fecal abnormalities; E86.0 Dehydration; N18.9 Chronic kidney disease, unspecified; F41.9 Anxiety disorder, unspecified; E78.00 Pure hypercholesterolemia, unspecified; E83.39 Other disorders of phosphorus metabolism; E83.42 Hypomagnesemia; Z20.828 Contact with and (suspected) exposure to other viral communicable diseases; E87.6 Hypokalemia; R62.7 Adult failure to thrive; E11.22 Type 2 diabetes mellitus with diabetic chronic kidney disease; S60.512A Abrasion of left hand, initial encounter; I50.9 Heart failure, unspecified; W19.XXXA Unspecified fall, initial encounter; Y93.89 Activity, other specified; Y92.89 Other specified places as the place of occurrence of the external cause; Y99.8 Other external cause status; Z90.710 Acquired absence of both cervix and uterus; Z87.891 Personal history of nicotine dependence; Z71.3 Dietary counseling and surveillance; Z79.4 Long term (current) use of insulin
CPT/HCPCS: 36415; 70450; 72125; 76770; 80048; 80053; 81001; 82271; 82550; 82607; 82728; 82962; 83036; 83735; 84100; 84132; 84165; 85007; 85014; 85018; 85025; G0378; J1815; J3420; J7030; U0003-CS